=== PATIENT | female | born 1945 | race African-American/Black ===

== ENCOUNTER 2016-06-06 05:12 | Day surgery (SDC) | payer BC ==
[2016-05-29 16:33] VITALS: BMI 22.3
[2016-06-06] MEDS ORDERED: LIDOCAINE HCL 1%, 10 MG/ML (20ML VIAL) ONE (07:12)
[2016-06-06] MEDS ORDERED: HEPARIN NA (PORCINE) 5,000 UNITS/ML 1ML VIAL ONE (07:12)
[2016-06-06] MEDS ORDERED: MIDAZOLAM HCL 2 MG/2 ML SINGLE DOSE VIAL ONE (07:31)
[2016-06-06] MEDS ORDERED: PROPOFOL 20 ML ONE ×3 (07:32)
[2016-06-06] MEDS ORDERED: LIDOCAINE HCL/PF 2% SDV 5ML VIAL ONE (07:37)
[2016-06-06] MEDS ORDERED: LIDOCAINE HCL 1%, 10 MG/ML (50 mL VIAL) IJ ONE ×2 (08:38)
[2016-06-06] MEDS ORDERED: ceFAZolin SODIUM 1 GM VIAL ONE (09:13)
--- NOTE | 2016-06-06 09:29 | OP ---
Operative Note - Note: Operative Date: 06/06/16 Pre-Operative Diagnosis: LLE claudication Operation: Aortogram, LLE angiogram, Popliteal artery, Tibial peroneal trunk DCB angioplasty Findings: popliteal artery occlusion Post-Operative Diagnosis: Same as Pre-op Surgeon: Benjamin Batista Anesthesia: Fractional Estimated Blood Loss (mls): 20 Operative Report Dictated: Yes
[2016-06-06] MEDS ORDERED: ONDANSETRON 4 MG/2 ML VIAL IVPUSH PRN (09:32)
--- NOTE | 2016-06-06 09:32 | HP ---
Admitting History and Physical - Admission Chief Complaint: LLE claudication - Past Medical History Cardiovascular: Yes: Hyperlipdemia, Other (Murmur/irregular rate) Renal/: Yes: Cancer (Bladder) ...: No - Smoking History Smoking history: Former smoker Have you smoked in the past 12 months: No - Alcohol/Substance Use Hx Alcohol Use: No Home Medications - Allergies Allergies/Adverse Reactions: Allergies Allergy/AdvReac Type Severity Reaction Status Date / Time ciprofloxacin [From Cipro] Allergy Verified 06/06/16 07:51 ciprofloxacin HCl Allergy Verified 06/06/16 07:51 [From Cipro] acetaminophen AdvReac Intermediate Itching Verified 06/06/16 07:51 [From Tylenol-Codeine #3] codeine phosphate AdvReac Intermediate Itching Verified 06/06/16 07:51 [From Tylenol-Codeine #3] - Home Medications Home Medications: Ambulatory Orders Ascorbate Calcium [Vitamin C] 500 mg PO DAILY 01/12/15 Calcium 500 mg PO DAILY 01/12/15 Cholecalciferol (Vitamin D3) [Vitamin D3] 2,000 unit PO DAILY 01/12/15 Magnesium 250 mg PO DAILY 01/12/15 Vit B Comp/C/FA/Iron/Vit E [Vitamin B Complex Tablet] 1 cap PO DAILY 01/12/15 Atorvastatin Ca [Lipitor] 10 mg PO HS 05/29/16 Ubidecarenone/Vit E Acetate [Co Q-10 100 mg Softgel] 1 each PO DAILY 05/29/16 Physical Examination Vital Signs: Vital Signs Temperature 98.5 F 06/06/16 07:50 Pulse Rate 82 06/06/16 07:50 Respiratory Rate 20 06/06/16 07:50 Blood Pressure 133/87 06/06/16 07:50 O2 Sat by Pulse Oximetry (%) 99 06/06/16 07:46 Constitutional: Yes: Well Nourished Eyes: Yes: WNL HENT: Yes: WNL Neck: Yes: WNL Cardiovascular: Yes: WNL Respiratory: Yes: WNL Gastrointestinal: Yes: WNL Edema: No Peripheral Pulses WNL: No Assessment/Plan Left lower extremity claudication 1. For angiogram today
[2016-06-06] MEDS ORDERED: CLOPIDOGREL BISULFATE 75 MG TABLET (FP) ONE (09:35)
[2016-06-06] MEDS ORDERED: CLOPIDOGREL BISULFATE 75 MG TABLET (FP) PO ONE (09:39)
[2016-06-06] MEDS ORDERED: LACTATED RINGERS SOLUTION 1,000 ML IV SCH (09:45)
[2016-06-06 10:37] VITALS: TEMP 97.9
--- NOTE | 2016-06-06 12:00 | OP ---
DATE OF OPERATION: 06/06/2016 PREOPERATIVE DIAGNOSIS: Left lower extremity claudication. POSTOPERATIVE DIAGNOSIS: Left lower extremity claudication. PROCEDURE: Aortogram, left lower extremity angiogram, popliteal artery and tibioperoneal trunk drug-coated balloon angioplasty. SURGEON: Benjamin Frost MD ANESTHESIA: Fractional. BLOOD LOSS: 20 mL. INDICATIONS: The patient is a 70-year-old female complaining of one-block claudication. She had a preoperative ultrasound that showed popliteal artery occlusion. She came into the ambulatory surgery. Patient was consented for the procedure understanding all risks, benefits, and alternatives, and then taken to the operating room. PROCEDURE IN DETAIL: Once in the operating suite, she was placed on the operating table in the supine manner, and the area of the left and right groin were prepped and draped in the sterile surgical manner. We then injected 10 mL of 0.5% lidocaine over the right common femoral artery. We then went ahead and used our micropuncture needle to puncture the right common femoral artery. Micropuncture wire was inserted, a micropuncture sheath was inserted, and a traditional 5-Albanian sheath was inserted. A 0.035 floppy guidewire was placed into the aorta followed by a Merit viewing catheter. We then went ahead and shot an aortogram by hand injection showing that the aorta and the iliac arteries were without any disease. We then placed our 0.035 floppy guidewire up and over to the left common femoral artery and the Merit catheter followed. We then shot an angiogram of the left lower extremity showing that the common femoral artery, the profunda, and the proximal SFA were patent. The mid SFA was patent. The distal SFA and Hunters canal were patent, but the above knee popliteal artery down to the TP trunk was completely occluded. Patient had 2-vessel runoff into the foot, but mainly the PT was the main runoff. We then placed a 0.035 stiff guidewire into the SFA. We removed our Merit catheter and placed 6 x 45 crossover sheath, and 5000 units of IV heparin were administered to the patient. We then followed with a Glidecath down to the above-knee popliteal artery. We then selectively crossed the occlusion and placed our wire into the posterior tibial artery. We then went ahead and used a 4 x 10 Ultraverse balloon for angioplasty. We then went ahead and used a 4 x 10 drug-coated balloon, a Lutonix balloon, for angioplasty, as well. Completion angiogram showed that the popliteal artery was now patent. There was good runoff into the foot. There was good brisk flow. At this point, we brought our sheath up and over, StarClose device was successfully deployed in the right common femoral artery. Pressure was held for 5 minutes, and there was no bleeding. The area was wet and dried, and Dermabond was placed. The patient tolerated the procedure with no complications. Patient transferred to PACU in stable condition where Plavix will be given. BENJAMIN FROST DO NP/[id number]
[2016-06-06 12:52] VITALS: BP 128/70; PULSE 78
--- NOTE | 2016-06-07 12:12 | PN ---
Progress Note (short form) - Note Progress Note: Anesthesiology, post op Phone call. Patient called and was concerned about swelling of her lip postop yesterday. pat was reassured yesterday by Dr. Aracelis Bagley, but she called back today and needed to know what caused the swelling. I had an extended conversation with the patient, explained the placement of oral airway and using tongue blade might have caused the swelling during the procedure. During the sedation she was biting hard at one point. Answered all her questions and addressed her concerns. Pat was reassured and satisfied at the end of our phone conversation.
== END 2016-06-06 12:40 | disposition home or self-care (01) ==
LOC: JASU-SURG 05:12
PROVIDERS: ATTEND Surgery Vascular Surgery
PROC: 047U3ZZ Dilation of Left Peroneal Artery, Percutaneous Approach (ICD-10-PCS; principal; 2016-06-06 08:00)
DX: I70.212 Atherosclerosis of native arteries of extremities with intermittent claudication, left leg (principal)
CPT/HCPCS: 37224; 37228; C1725; C2623; 76000-TC; 94760; J1644

== ENCOUNTER 2018-04-06 10:57 | Inpatient (IN) | payer OTHER, BC ==
--- NOTE | 2018-04-06 11:21 | PDOC ---
History of Present Illness - General Chief Complaint: Shortness of Breath Stated Complaint: SHORTNESS OF BREATH Time Seen by Provider: 04/06/18 11:16 - History of Present Illness Initial Comments: 04/06/18 11:40 72 year old woman with a history of COPD (not on home O2) who presents with progressive shortness of breath for 1 month now with 2 days of L leg swelling for which she went to urgent care and as she was getting out of the car began feeling acutely short of breath and was desatting. Urgent care sent to her to the ED. She denies any chest pain, nausea, fever, 04/06/18 13:34 Past History - Past Medical History Allergies/Adverse Reactions: Allergies Allergy/AdvReac Type Severity Reaction Status Date / Time ciprofloxacin [From Cipro] Allergy Verified 04/06/18 11:12 ciprofloxacin HCl Allergy Verified 04/06/18 11:12 [From Cipro] acetaminophen AdvReac Intermediate Itching Verified 04/06/18 11:12 [From Tylenol-Codeine #3] codeine phosphate AdvReac Intermediate Itching Verified 04/06/18 11:12 [From Tylenol-Codeine #3] Home Medications: Ambulatory Orders Ascorbate Calcium [Vitamin C] 500 mg PO DAILY 01/12/15 Cholecalciferol (Vitamin D3) [Vitamin D3] 2,000 unit PO DAILY 01/12/15 Magnesium 250 mg PO DAILY 01/12/15 Vit B Comp/C/Folic/Iron/Vit E [Vitamin B Complex Tablet] 1 cap PO DAILY Ubidecarenone/Vit E Acet [Co Q-10 100 mg Softgel] 1 each PO DAILY 05/29/16 Anemia: No Asthma: No (EMPHYSEMA) Cancer: Yes (bladder ca 11 yrs ago) Cardiac Disorders: No CVA: No COPD: Yes CHF: No Dementia: No Diabetes: No GI Disorders: No Disorders: Yes (CA bladder) HTN: No Hypercholesterolemia: Yes Liver Disease: No Seizures: No Thyroid Disease: No - Surgical History Orthopedic Surgery: Yes (broken bone with pin on right foot) - Suicide/Smoking/Psychosocial Hx Smoking History: Former smoker Have you smoked in the past 12 months: No Information on smoking cessation initiated: No Hx Alcohol Use: No Drug/Substance Use Hx: No Substance Use Type: None Hx Substance Use Treatment: No *Physical Exam - Vital Signs Last Vital Signs Temp Pulse Resp BP Pulse Ox 99 F 102 H 20 170/96 97 04/06/18 11:05 04/06/18 11:05 04/06/18 11:05 04/06/18 11:05 04/06/18 11:05 - Physical Exam Comments: 04/06/18 11:44 harsh systolic murmur 1+ pitting edema on L ankle, calf, thigh Moderate Sedation - Procedure Monitoring Vital Signs: Procedure Monitoring Vital Signs Temperature 99 F 04/06/18 11:05 Pulse Rate 102 H 04/06/18 11:05 Respiratory Rate 20 04/06/18 11:05 Blood Pressure 170/96 04/06/18 11:05 O2 Sat by Pulse Oximetry (%) 97 04/06/18 11:05 ED Treatment Course - LABORATORY CBC & Chemistry Diagram: 04/06/18 13:35 04/06/18 11:39 Medical Decision Making - Medical Decision Making 04/06/18 12:17 72 year old woman with a history of COPD (not on home O2) who presents with progressive shortness of breath for 1 month now with 2 days of L leg swelling for which she went to urgent care and as she was getting out of the car began feeling acutely short of breath and was desatting. Urgent care sent to her to the ED. ED Course: Consider PE, DVT vs CHF vs COPD exacerbation vs pneumonia cbc, cmp, pt/pttinr, ekg, cxr, cta chest, bnp 04/06/18 13:34 *DC/Admit/Observation/Transfer Diagnosis at time of Disposition: DVT (deep venous thrombosis) Qualifiers: DVT location: lower extremity Affected thrombotic vein of extremity: femoral Chronicity: unspecified Laterality: left Qualified Code(s): I82.412 - Acute embolism and thrombosis of left femoral vein Pulmonary embolism Qualifiers: Pulmonary embolism type: unspecified Chronicity: unspecified Acute cor pulmonale presence: without acute cor pulmonale Qualified Code(s): I26.99 - Other pulmonary embolism without acute cor pulmonale - Discharge Dispostion Condition at time of disposition: Fair Decision to Admit order: Yes - Referrals Referrals: Inna Christine MD [Primary Care Provider] - - Patient Instructions - Post Discharge Activity
--- NOTE | 2018-04-06 11:46 | PDOC ---
Attending Attestation - HPI HPI: 04/06/18 13:15 The patient is a 72 year old female with a PMH of COPD (not on home O2) who presents to the ER with a 1 month history of shortness of breath and right leg swelling for the past 2 days. Patient was seen at an urgent care and was told to come to the ER for further evaluation. The patient denies cp, fever, chills, N/V/D/C, diaphoresis, or urinary symptoms. Allergies: cipro, acetaminophen. codeine phosphate Social Hx: No reported alcohol, drug or cigarette use. Surgeries: broken bone with pin on right foot PCP: Dr. Christine <Taylor Brar - Last Filed: 04/06/18 13:16> - Resident Resident Name: Ana Maria Anglin - ED Attending Attestation I have performed the following: I have examined & evaluated the patient, The case was reviewed & discussed with the resident, I agree w/resident's findings & plan, Exceptions are as noted - Physicial Exam PE: GENERAL: Awake, alert, and fully oriented, in no acute distress HEAD: No signs of trauma EYES: PERRLA, EOMI, sclera anicteric, conjunctiva clear ENT: Auricles normal inspection, hearing grossly normal, nares patent, oropharynx clear without exudates. Moist mucosa NECK: Normal ROM, supple, no lymphadenopathy, JVD, or masses LUNGS: Breath sounds equal, clear to auscultation bilaterally. No wheezes, and no crackles HEART: Regular rate and rhythm, normal S1 and S2, no murmurs, rubs or gallops ABDOMEN: Soft, nontender, normoactive bowel sounds. No guarding, no rebound. No masses EXTREMITIES: Normal range of motion, 1+ edema to the LLE- thigh and knee. No clubbing or cyanosis. No cords, erythema, or tenderness NEUROLOGICAL: Cranial nerves II through XII grossly intact. Normal speech, normal gait. Motor and sensation intact SKIN: Warm, Dry, normal turgor, no rashes or lesions noted. - Medical Decision Making Pt tachycardic, c/o SOB with unilateral lower extremity swelling. Will work up for DVT/PE vs CHF. <Brittney Morrell - Last Filed: 04/06/18 13:33>
[2018-04-06 13:51] LABS: BASO % 0.4 % (0-2.0); EOS % 0.7 % (0-4.5); HEMATOCRIT 41.7 % (32.4-45.2); HEMOGLOBIN 13.5 GM/dL (10.7-15.3); LYMPH % 6.7 % (8-40); MCH 26.9 pg (25.7-33.7); MCHC 32.3 g/dl (32.0-36.0); MEAN CELL VOLUME 83.2 fl (80-96); MEAN PLT VOLUME 7.5 fl (7.5-11.1); MONO % 4.4 % (3.8-10.2); NEUT % 87.8 % (42.8-82.8); PLATELET COUNT 383 K/MM3 (134-434); RBC 5.01 M/mm3 (3.60-5.2); RDW 15.2 % (11.6-15.6); WHITE BLOOD COUNT 14.1 K/mm3 (4.0-10.0)
[2018-04-06 13:58] LABS: INR 1.16 (0.83-1.09); PROTHROMBIN TIME (PATIENT) 13.7 SEC (9.7-13.0)
[2018-04-06 14:00] LABS: ACTIVATED PTT 23.4 SECONDS (25.2-36.5)
[2018-04-06 14:09] LABS: ALBUMIN 3.9 g/dl (3.4-5.0); ALK PHOS 59 U/L (45-117); ANION GAP 8 MMOL/L (8-16); BILIRUBIN,TOTAL 0.7 mg/dL (0.2-1); BLOOD UREA NITROGEN 12 mg/dL (7-18); CALCIUM 9.1 mg/dL (8.5-10.1); CHLORIDE 105 mmol/L (98-107); CO2 25 mmol/L (21-32); CREATININE 0.8 mg/dL (0.55-1.3); GLUCOSE,RANDOM 87 mg/dL (74-106); N-TERMINAL BNP 767.4 pg/ml (5-125); POTASSIUM 4.4 mmol/L (3.5-5.1); SGOT/AST 19 U/L (15-37); SGPT/ALT 24 U/L (13-61); SODIUM 138 mmol/L (136-145); TOT PROT 8.5 g/dl (6.4-8.2)
--- NOTE | 2018-04-06 14:39 | EKG ---
Test Reason : Blood Pressure : / mmHG Vent. Rate : 102 BPM Atrial Rate : 102 BPM P-R Int : 138 ms QRS Dur : 072 ms QT Int : 336 ms P-R-T Axes : 078 015 018 degrees QTc Int : 437 ms SINUS TACHYCARDIA POSSIBLE LEFT ATRIAL ENLARGEMENT BORDERLINE ECG WHEN COMPARED WITH ECG OF 07-OCT-2014 07:43, VENT. RATE HAS INCREASED BY 40 BPM Confirmed by Aditya Erwin MD ([id number]) on 04/06/2018 2:39:10 PM Referred By: Confirmed By:Aditya Erwin MD
[2018-04-06] MEDS ORDERED: ENOXAPARIN NA (PORCINE) 60 MG/0.6 ML DISP.SYRIN SQ SCH (14:45)
[2018-04-06] MEDS ORDERED: CLINDAMYCIN 600MG PREMIX IVPB 600 MG/50 ML BAG IVPB ONE (15:12)
[2018-04-06] MEDS ORDERED: ENOXAPARIN NA (PORCINE) 60 MG/0.6 ML DISP.SYRIN SQ ONE (15:13)
[2018-04-06] MEDS: ENOXAPARIN NA (PORCINE) 60 MG/0.6 ML DISP.SYRIN SQ SCH (23:38)
[2018-04-07 07:33] LABS: BASO % 0.9 % (0-2.0); EOS % 2.3 % (0-4.5); HEMATOCRIT 36.6 % (32.4-45.2); HEMOGLOBIN 12.2 GM/dL (10.7-15.3); LYMPH % 13.1 % (8-40); MCH 27.4 pg (25.7-33.7); MCHC 33.2 g/dl (32.0-36.0); MEAN CELL VOLUME 82.6 fl (80-96); MEAN PLT VOLUME 7.8 fl (7.5-11.1); MONO % 6.7 % (3.8-10.2); PLATELET COUNT 337 K/MM3 (134-434); RBC 4.43 M/mm3 (3.60-5.2); WHITE BLOOD COUNT 9.9 K/mm3 (4.0-10.0)
[2018-04-07 08:04] LABS: ALBUMIN 3.2 g/dl (3.4-5.0); ALK PHOS 50 U/L (45-117); ANION GAP 9 MMOL/L (8-16); BILIRUBIN,TOTAL 0.6 mg/dL (0.2-1); BLOOD UREA NITROGEN 13 mg/dL (7-18); CALCIUM 8.4 mg/dL (8.5-10.1); CHLORIDE 106 mmol/L (98-107); CO2 24 mmol/L (21-32); CREATININE 0.8 mg/dL (0.55-1.3); GLUCOSE,RANDOM 76 mg/dL (74-106); N-TERMINAL BNP 741.5 pg/ml (5-125); POTASSIUM 4.1 mmol/L (3.5-5.1); SGOT/AST 16 U/L (15-37); SGPT/ALT 19 U/L (13-61); SODIUM 139 mmol/L (136-145); TOT PROT 7.2 g/dl (6.4-8.2)
--- NOTE | 2018-04-07 09:27 | EKG ---
Test Reason : Blood Pressure : / mmHG Vent. Rate : 114 BPM Atrial Rate : 114 BPM P-R Int : 136 ms QRS Dur : 066 ms QT Int : 310 ms P-R-T Axes : -18 043 034 degrees QTc Int : 427 ms SINUS TACHYCARDIA WITH PREMATURE SUPRAVENTRICULAR COMPLEXES T WAVE ABNORMALITY, CONSIDER ANTERIOR ISCHEMIA ABNORMAL ECG Confirmed by Aditya Erwin MD ([id number]) on 04/07/2018 9:27:27 AM Referred By: Confirmed By:Aditya Erwin MD
--- NOTE | 2018-04-07 10:32 | HP ---
Admitting History and Physical - Admission History of Present Illness: 72 year old female with a PMH of COPD (not on home O2) who presents to the ER with a 1 month history of shortness of breath and right leg swelling for the past 2 days. Patient travelled to [place] by car on month ago-- - Past Medical History Cardiovascular: Yes: Hyperlipdemia, Other (Murmur/irregular rate) Renal/: Yes: Cancer (Bladder) - Smoking History Smoking history: Former smoker Have you smoked in the past 12 months: No If you are a former smoker, when did you quit?: 20 years ago - Alcohol/Substance Use Hx Alcohol Use: No Home Medications - Allergies Allergies/Adverse Reactions: Allergies Allergy/AdvReac Type Severity Reaction Status Date / Time ciprofloxacin [From Cipro] Allergy Verified 04/06/18 11:12 ciprofloxacin HCl Allergy Verified 04/06/18 11:12 [From Cipro] acetaminophen AdvReac Intermediate Itching Verified 04/06/18 11:12 [From Tylenol-Codeine #3] codeine phosphate AdvReac Intermediate Itching Verified 04/06/18 11:12 [From Tylenol-Codeine #3] - Home Medications Home Medications: Ambulatory Orders Ascorbate Calcium [Vitamin C] 500 mg PO DAILY 01/12/15 Cholecalciferol (Vitamin D3) [Vitamin D3] 2,000 unit PO DAILY 01/12/15 Magnesium 250 mg PO DAILY 01/12/15 Vit B Comp/C/Folic/Iron/Vit E [Vitamin B Complex Tablet] 1 cap PO DAILY Ubidecarenone/Vit E Acet [Co Q-10 100 mg Softgel] 1 each PO DAILY 05/29/16 Review of Systems - Review of Systems Cardiovascular: denies: Chest Pain Respiratory: reports: SOB, SOB on Exertion Gastrointestinal: denies: Abdominal Pain Genitourinary: reports: No Symptoms Musculoskeletal: reports: Other (swelling) Neurological: reports: No Symptoms Physical Examination Vital Signs: Vital Signs Temperature 98.9 F 04/07/18 05:00 Pulse Rate 99 H 04/07/18 05:00 Respiratory Rate 18 04/07/18 05:00 Blood Pressure 124/83 04/07/18 05:00 O2 Sat by Pulse Oximetry (%) 93 L 04/06/18 21:47 Neck: Yes: Supple Cardiovascular: Yes: Regular Rate and Rhythm Respiratory: Yes: Regular, CTA Bilaterally Gastrointestinal: Yes: Normal Bowel Sounds, Soft Edema: Yes Labs: CBC, BMP 04/07/18 06:00 04/07/18 06:00 Imaging - Results Ultrasound: Report Reviewed (dvt) Problem List - Problems (1) DVT (deep venous thrombosis) Assessment/Plan: -LOVENOX HEM CONSULT FOR HYPERCOAG W/U Code(s): I82.409 - ACUTE EMBOLISM AND THOMBOS UNSP DEEP VN UNSP LOWER EXTREMITY Qualifiers: DVT location: lower extremity Affected thrombotic vein of extremity: femoral Chronicity: unspecified Laterality: left Qualified Code(s): I82.412 - Acute embolism and thrombosis of left femoral vein (2) Pulmonary embolism Assessment/Plan: -C/W SYMPTOMS CTA LOVENOX Code(s): I26.99 - OTHER PULMONARY EMBOLISM WITHOUT ACUTE COR PULMONALE Qualifiers: Pulmonary embolism type: unspecified Chronicity: unspecified Acute cor pulmonale presence: without acute cor pulmonale Qualified Code(s): I26.99 - Other pulmonary embolism without acute cor pulmonale (3) COPD (chronic obstructive pulmonary disease) Assessment/Plan: PULM ON CASE Code(s): J44.9 - CHRONIC OBSTRUCTIVE PULMONARY DISEASE, UNSPECIFIED (4) SOB (shortness of breath) on exertion Assessment/Plan: MAYBE DUE TO ABOVE ECHO CARDIO Code(s): R06.02 - SHORTNESS OF BREATH
--- NOTE | 2018-04-07 11:13 | PN ---
Progress Note (short form) - Note Progress Note: PULMONARY CONSULTATION DICTATED 04/07/18 IMP DYSPNEA/HYPOXEMIA LIKELY SECONDARY TO ACUTE PULMONARY EMBOLISM LLE DVT LIKELY PROVOKED COPD CHELSIE NODULE H/O BLADDER CA + TROPONIN PLAN LOVENOX O2 INHALED BRONCHODILATORS CHEST CTA ECHO W/U FOR HYPERCOAGULABLE STATE OUTPATIENT TREND TROPONINS DR NEFF Problem List - Problems (1) COPD (chronic obstructive pulmonary disease) Code(s): J44.9 - CHRONIC OBSTRUCTIVE PULMONARY DISEASE, UNSPECIFIED (2) DVT (deep venous thrombosis) Code(s): I82.409 - ACUTE EMBOLISM AND THOMBOS UNSP DEEP VN UNSP LOWER EXTREMITY Qualifiers: DVT location: lower extremity Affected thrombotic vein of extremity: femoral Chronicity: unspecified Laterality: left Qualified Code(s): I82.412 - Acute embolism and thrombosis of left femoral vein (3) Pulmonary embolism Code(s): I26.99 - OTHER PULMONARY EMBOLISM WITHOUT ACUTE COR PULMONALE Qualifiers: Pulmonary embolism type: unspecified Chronicity: unspecified Acute cor pulmonale presence: without acute cor pulmonale Qualified Code(s): I26.99 - Other pulmonary embolism without acute cor pulmonale (4) Hypoxemia Code(s): R09.02 - HYPOXEMIA (5) SOB (shortness of breath) on exertion Code(s): R06.02 - SHORTNESS OF BREATH
[2018-04-07] MEDS: ENOXAPARIN NA (PORCINE) 60 MG/0.6 ML DISP.SYRIN SQ SCH ×2 (12:31→21:13)
--- NOTE | 2018-04-07 12:46 | CON.CARD ---
Consult Consult Specialty:: Cardiology Referred by:: Abran Reason for Consultation:: sob - History of Present Illness Chief Complaint: sob, edema History of Present Illness: 72 year old female with a PMH of COPD admitted 04/06/18 complaining of a 1 month history of shortness of breath and right leg swelling for 2 days. She was found with an extensive left leg DVT on sonogram. Started on Lovenox. No chest pain, orthopnea, pnd. No palpitations, dizziness or syncope. - History Source History Provided By: Patient, Medical Record - Past Medical History Cardio/Vascular: Yes: Hyperlipdemia, Other (Murmur/irregular rate) Renal/: Yes: Cancer (Bladder) - Alcohol/Substance Use Hx Alcohol Use: No - Smoking History Smoking history: Former smoker Have you smoked in the past 12 months: No If you are a former smoker, when did you quit?: 20 years ago Home Medications - Allergies Allergies/Adverse Reactions: Allergies Allergy/AdvReac Type Severity Reaction Status Date / Time ciprofloxacin [From Cipro] Allergy Verified 04/06/18 11:12 ciprofloxacin HCl Allergy Verified 04/06/18 11:12 [From Cipro] acetaminophen AdvReac Intermediate Itching Verified 04/06/18 11:12 [From Tylenol-Codeine #3] codeine phosphate AdvReac Intermediate Itching Verified 04/06/18 11:12 [From Tylenol-Codeine #3] - Home Medications Home Medications: Ambulatory Orders Ascorbate Calcium [Vitamin C] 500 mg PO DAILY 01/12/15 Cholecalciferol (Vitamin D3) [Vitamin D3] 2,000 unit PO DAILY 01/12/15 Magnesium 250 mg PO DAILY 01/12/15 Vit B Comp/C/Folic/Iron/Vit E [Vitamin B Complex Tablet] 1 cap PO DAILY Ubidecarenone/Vit E Acet [Co Q-10 100 mg Softgel] 1 each PO DAILY 05/29/16 Vital Signs: Vital Signs Temperature 98.9 F 04/07/18 05:00 Pulse Rate 98 H 04/07/18 09:00 Respiratory Rate 18 04/07/18 09:00 Blood Pressure 100/74 04/07/18 09:00 O2 Sat by Pulse Oximetry (%) 95 04/07/18 09:00 Constitutional: Yes: Well Nourished, No Distress, Calm Eyes: Yes: Conjunctiva Clear, EOM Intact HENT: Yes: Atraumatic, Normocephalic Neck: Yes: Supple, Trachea Midline Respiratory: Yes: Regular, CTA Bilaterally Gastrointestinal: Yes: Normal Bowel Sounds, Soft Cardiovascular: Yes: Regular Rate and Rhythm JVD: No Carotid Bruit: No PMI: Non-Displaced Heart Sounds: Yes: S1, S2 Musculoskeletal: Yes: WNL Extremities: Yes: WNL Edema: Yes Edema: LLE: 2+ Peripheral Pulses WNL: Yes - Other Data Labs, Other Data: CBC, BMP 04/07/18 06:00 04/07/18 06:00 INR, PTT INR 1.16 (0.83-1.09) H 04/06/18 11:39 Troponin, BNP 04/06/18 04/06/18 04/06/18 11:39 13:35 19:41 Troponin I 0.06 H 0.05 B-Natriuretic Peptide 767.4 H Cancelled 04/07/18 06:00 Troponin I 0.05 B-Natriuretic Peptide 741.5 H Troponin, BNP 04/06/18 04/06/18 04/06/18 11:39 13:35 19:41 Troponin I 0.06 H 0.05 B-Natriuretic Peptide 767.4 H Cancelled 04/07/18 06:00 Troponin I 0.05 B-Natriuretic Peptide 741.5 H Imaging - Results Chest X-ray: Report Reviewed EKG: Report Reviewed Other: Report Reviewed (duplex left DVT) Assessment/Plan 72 year old female with a PMH of COPD admitted 04/06/18 complaining of a 1 month history of shortness of breath and right leg swelling for 2 days. She was found with an extensive left leg DVT on sonogram. Started on Lovenox. DVT-- This is the likely cause of her issues. -echo -CTA to evaluate for PE -would consider change from Lovenox to Xarelto or Eliquis. -No need for ischemia workup at this point.
--- NOTE | 2018-04-07 13:00 | EKG ---
Test Reason : Blood Pressure : / mmHG Vent. Rate : 103 BPM Atrial Rate : 103 BPM P-R Int : 134 ms QRS Dur : 068 ms QT Int : 342 ms P-R-T Axes : 074 042 031 degrees QTc Int : 448 ms SINUS TACHYCARDIA WITH PREMATURE ATRIAL COMPLEXES OTHERWISE NORMAL ECG WHEN COMPARED WITH ECG OF 06-APR-2018 19:32, NO SIGNIFICANT CHANGE WAS FOUND Confirmed by Aditya Erwin MD ([id number]) on 04/07/2018 12:59:34 PM Referred By: Varghese MOSS Confirmed By:Aditya Erwin MD
--- NOTE | 2018-04-07 14:24 | CONS ---
PULMONARY CONSULTATION DATE OF CONSULTATION: 04/07/2018 REFERRING PHYSICIAN: Rhonda Osullivan MD The patient is a 72-year-old black female with past medical history of COPD maintained on albuterol inhaler,Bladder Ca ,who is a nonsmoker, admitted to [facility] with complaint of shortness of breath and left lower extremity swelling. Patient states that she went for a long car ride in January to [place] and back. About a week or so after the trip, she started developing progressive shortness of breath and dyspnea with minimal exertion. She denied any compliant of chest pain, nausea, vomiting, or diaphoresis at that time. Symptoms continued to worsen, and on 2 days prior to this admission, started noticing left lower extremity swelling. She went to an urgicenter. At the time, was advised to go to the emergency room. She was also noted to be hypoxic with O2 saturations in the 80s. Duplex of the lower extremity which revealed a deep vein thrombosis in the left common femoral, greater saphenous, and likely the junction/origin of the deep femoral vein. She was transferred to the telemetry unit, started on Lovenox. Patient underwent a CTA which was non-diagnostic secondary to apparently there was an issue with the contrast material. Patient has a history of smoking, quit 20 years ago. She denies any history of occupational exposure to chemicals or fumes. There is no history of DVT or PE in the past. There is no history of respiratory failure in the past requiring ventilatory support. PAST MEDICAL HISTORY: Again includes COPD. REVIEW OF SYSTEMS: Positive dyspnea. Positive chest tightness. No chest pain. No nausea. No vomiting. No diaphoresis. No fevers, chills, weight loss, or night sweats. CURRENT MEDICATIONS: Include Lovenox. PHYSICAL EXAMINATION: General: The patient is a well-developed, well-nourished female, awake, alert, in no acute distress. Vital Signs: She is afebrile. Blood pressure is 100/74. Respiratory rate is 18. O2 saturation is 95% on room air. HEENT: Normocephalic, atraumatic. Neck: Supple. Heart: Regular. S1, S2. Chest: Clear. Abdomen: Soft. Bowel sounds positive. Extremities: There is swelling and tenderness, left lower extremity. REPORTS: Chest CT not interpreted apparently. Chest x-ray: No infiltrates. No effusions. Duplex: Left lower extremity DVT. Also, of note is patient had a chest CT performed in November 2017, which revealed a left upper lobe nodule which has been relatively stable over 2 years' duration, currently being followed by Dr. Sinha. IMPRESSION: 1. Dyspnea, most likely secondary to acute pulmonary embolism, likely provoked. 2. Left lower extremity deep vein thrombosis, again likely provoked secondary to recent travel. 3. Chronic obstructive pulmonary disease. 4. H/O Bladder ca PLAN: Continue Lovenox, supplemental O2 as needed, inhaled bronchodilators. Also, repeat CTA of the chest. Obtain echocardiogram. Also, workup for hypercoagulable state as an outpatient. JOSE D NEFF M.D. [id number] MTDD
--- NOTE | 2018-04-07 19:18 | CONSULT ---
Consult Consult Specialty:: Hematology Referred by:: Reason for Consultation:: DVT - History of Present Illness Chief Complaint: Leg swelling and SOB History of Present Illness: 72F with COPD admitted yesterday with LLE swelling and pain x 2 days. Found to have DVT in left common femoral, greater saphenous and likely involving the junction/origin of deep femoral vein. Started on Lovenox. Endorses 2 months of exertional SOB, without chest pain as well (not typical of her COPD). Reports car roundtrip to [place] (under 4 hours) prior to onset of SOB. No other travel , surgeries, hospitalizations, or injuries. No prior hx of thrombosis. Pt's mother had a blood clot at an older age. Also, sister with DVT before age 50. Reports normal mammo and colonoscopy about 1 year ago. Denies melena, hematochezia, vaginal bleeding, fevers, weight loss. Not on any hormonal treatments or supplements. - Past Medical History Cardio/Vascular: Yes: Hyperlipdemia, Other (Murmur/irregular rate) Renal/: Yes: Cancer (Bladder) - Alcohol/Substance Use Hx Alcohol Use: No - Smoking History Smoking history: Former smoker Have you smoked in the past 12 months: No If you are a former smoker, when did you quit?: 20 years ago Home Medications - Allergies Allergies/Adverse Reactions: Allergies Allergy/AdvReac Type Severity Reaction Status Date / Time ciprofloxacin [From Cipro] Allergy Verified 04/06/18 11:12 ciprofloxacin HCl Allergy Verified 04/06/18 11:12 [From Cipro] acetaminophen AdvReac Intermediate Itching Verified 04/06/18 11:12 [From Tylenol-Codeine #3] codeine phosphate AdvReac Intermediate Itching Verified 04/06/18 11:12 [From Tylenol-Codeine #3] - Home Medications Home Medications: Ambulatory Orders Ascorbate Calcium [Vitamin C] 500 mg PO DAILY 01/12/15 Cholecalciferol (Vitamin D3) [Vitamin D3] 2,000 unit PO DAILY 01/12/15 Magnesium 250 mg PO DAILY 01/12/15 Vit B Comp/C/Folic/Iron/Vit E [Vitamin B Complex Tablet] 1 cap PO DAILY Ubidecarenone/Vit E Acet [Co Q-10 100 mg Softgel] 1 each PO DAILY 05/29/16 Review of Systems - Review of Systems Constitutional: reports: No Symptoms Cardiovascular: reports: Shortness of Breath Respiratory: reports: SOB, SOB on Exertion Gastrointestinal: reports: No Symptoms Genitourinary: reports: No Symptoms Endocrine: reports: No Symptoms Hematology/Lymphatic: reports: No Symptoms Physical Exam Vital Signs: Vital Signs Temperature 98.6 F 04/07/18 13:00 Pulse Rate 107 H 04/07/18 13:00 Respiratory Rate 18 04/07/18 13:00 Blood Pressure 94/50 L 04/07/18 13:00 O2 Sat by Pulse Oximetry (%) 95 04/07/18 09:00 Constitutional: Yes: Well Nourished, Calm Eyes: Yes: Conjunctiva Clear Cardiovascular: Yes: Regular Rate and Rhythm Respiratory: Yes: Regular, CTA Bilaterally Gastrointestinal: Yes: Soft Edema: Yes Edema: LLE: 2+ (well perfused, no skin changes) Labs: CBC, BMP 04/07/18 06:00 04/07/18 06:00 Imaging - Results Ultrasound: Report Reviewed Assessment/Plan 72F with COPD admitted with first extensive LLE. No clear provoking factor. It' s possible that it developed after January car trip (prior to onset of SOB) though it wasn't very long. Ordered for CTA. Can switch to PO anticoagulation. Would favor Eliquis -- 10 mg BID x 7 days, followed by 5 mg BID. She should f/u in hematology clinic in 3 months to determine duration. Given extent of thrombosis, questionable provoking factor, and family history, will likely need senior living AC.
--- NOTE | 2018-04-08 02:06 | PN ---
Progress Note (short form) - Note Progress Note: 72 yr old woman with HLD, hx of bladder Ca, presented to the ED with left leg swelling with tightness for 2 days a/w shortness of breath and fatigue for past 1 month since returning from a car trip to [place] 2 days prior to [place]. Since her car ride she notes increased sob on exertion especially when going up stairs. was on 5-day course of NSAIDs and antibiotics for URI symptoms earlier this month that led to loose BM's. denies chest pain, leg pain, fever, dysuria, cough, headache, dizziness, syncope , weightloss, night sweats. Pmhx - diagnosed with bladder ca in 2001 at [facility], received 3 injections("was told it was a derivative of TB virus") directly in her bladder for tx't(denied radiotherapy) and was followed by for 3mo, 6mo and then yearly f/u with no return of bladder cancer masses. stopped going to f/u in 2012 - had colonoscopy q5yrs since age 49, last colonoscopy in jan 2017, she normally has polyps removed with every colonoscopy, in 2017 she was told to return in 3 yrs for f/u due to a large polyp, recalls they were always benign. did not get a colonoscopy in 2018. GI dr: Dr. Ugalde - gets mammograms every year(but missed 2018) without any pathology - was found to have a lung nodule in 2016, follows with Dr. Sinha and Dr. Singleton, has been stable. - underwent angioplasty in 06/06/[address] Batista that found popliteal artery occlusion, she followed up 3 months later with u/s that showed good perfusion Soc hx:Former smoker, started around her 20's with 1-2cigs occasionally with gradual incr to 1pk/day in her 50's before being tapered down to quitting, has abstained since her mid-50's. drinks 1 glass of wine 1-2x mo with dinner, smoker marijuana occasionally in her 20's(denies recent use) fmhx: Sister with hx of DVT, dx'd at age 20's(pt does not recall if there was any cause identified for her sister's DVT or the circumstances under which it occurred) Mother with Breast Ca, dx'd age 80's Brother with prostate Ca, dx'd age 60-70's 2 adult children(1 son in the [place], 1 daughter in [place]) and 1 granddaughter all healthy PE: NAD, calm CV: systolic murmur, s1, s2, no RG Lungs: no wheezes/crackles/rhonchi/rales, CTAB, quiet at bases Chest: nontender ABd: soft, nontender, nondistended EXT: nontender calves, no pitting edema, Lthigh mildly larger than right, no LE erythema, no rashes, 2+DP and popliteal pulses b/l, warm Neuro: facial symmetry, CN2-12 intact, alert and oriented x3, 5/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 72 yr old woman with HLD, LLE claudication, with hx of bladder ca and pulm nodule presented to ED with left leg swelling caused by VTE and was found to have extensive PE now being monitored in the ICU pending further evaluation. Heme - on Lovenox 60mg BID for VTEs will need further evaluation with echo to test for right heart strain IR evaluation for thrombectomy heme consult for coagulopathy work-up pt has concerns about being placed on AC due to GI bleed risk CV ICU monitoring for hemodynamic stability Pulm - outpt f/u of nodule
--- NOTE | 2018-04-08 09:12 | PN ---
Progress Note, Physician Chief Complaint: AWAKE ALERT EVENTS AND NOTES REVIEWED COMFORTABLE ON 2L NC - Current Medication List Current Medications: Active Medications Enoxaparin Sodium (Lovenox -) 60 mg SQ BID PAPA Last Admin: 04/07/18 21:13 Dose: 60 mg - Objective Vital Signs: Vital Signs Temperature 98.2 F 04/08/18 06:00 Pulse Rate 92 H 04/08/18 06:00 Respiratory Rate 18 04/08/18 06:00 Blood Pressure 129/87 04/08/18 06:00 O2 Sat by Pulse Oximetry (%) 93 L 04/07/18 22:00 Constitutional: Yes: No Distress Eyes: Yes: WNL HENT: Yes: WNL Neck: Yes: WNL Cardiovascular: Yes: Tachycardia Respiratory: Yes: Diminished Gastrointestinal: Yes: Soft Genitourinary: Yes: WNL Musculoskeletal: Yes: WNL Extremities: Yes: WNL Edema: No Peripheral Pulses WNL: Yes Integumentary: Yes: WNL Wound/Incision: Yes: Clean/Dry Neurological: Yes: WNL ...Motor Strength: WNL Psychiatric: Yes: WNL Labs: CBC, BMP 04/07/18 06:00 04/07/18 06:00 INR, PTT INR 1.16 (0.83-1.09) H 04/06/18 11:39 Problem List - Problems (1) COPD (chronic obstructive pulmonary disease) Code(s): J44.9 - CHRONIC OBSTRUCTIVE PULMONARY DISEASE, UNSPECIFIED (2) DVT (deep venous thrombosis) Code(s): I82.409 - ACUTE EMBOLISM AND THOMBOS UNSP DEEP VN UNSP LOWER EXTREMITY Qualifiers: DVT location: lower extremity Affected thrombotic vein of extremity: femoral Chronicity: unspecified Laterality: left Qualified Code(s): I82.412 - Acute embolism and thrombosis of left femoral vein (3) Hypoxemia Code(s): R09.02 - HYPOXEMIA (4) Pulmonary embolism Code(s): I26.99 - OTHER PULMONARY EMBOLISM WITHOUT ACUTE COR PULMONALE Qualifiers: Pulmonary embolism type: unspecified Chronicity: unspecified Acute cor pulmonale presence: without acute cor pulmonale Qualified Code(s): I26.99 - Other pulmonary embolism without acute cor pulmonale Assessment/Plan LOVENOX SQ TRANSITION TO [facility] FOR 6 MONTHS HEME/PULM EVAL 02 SUPPORT NEBS OOB TO CHAIR
[2018-04-08] MEDS: ENOXAPARIN NA (PORCINE) 60 MG/0.6 ML DISP.SYRIN SQ SCH ×2 (10:02→21:47)
--- NOTE | 2018-04-08 11:23 | PN ---
Teaching Attending Note Name of Resident: Nile Harris ATTENDING PHYSICIAN STATEMENT I saw and evaluated the patient. I reviewed the resident's note and discussed the case with the resident. I agree with the resident's findings and plan as documented. SUBJECTIVE: Patient seen and examined in the ICU. Awake and alert. No CP or SOB. No dizziness. ECHO was just completed and the results are pending. Intake & Output 04/05/18 04/06/18 04/07/18 04/08/18 23:59 23:59 23:59 23:59 Intake Total 10 350 150 Balance 10 350 150 Weight 121 lb 9.6 oz 121 lb 9.6 oz 120 lb 4 oz Last Vital Signs Temp Pulse Resp BP Pulse Ox 98.1 F 88 24 H 121/74 93 L 04/08/18 10:00 04/08/18 10:00 04/08/18 10:00 04/08/18 10:00 04/07/18 22:00 Active Medications Enoxaparin Sodium (Lovenox -) 60 mg SQ BID PAPA Last Admin: 04/08/18 10:02 Dose: 60 mg Constitutional: Yes: Awake and alert Eyes: Yes: Conjunctiva Clear Cardiovascular: Yes: Regular Rate and Rhythm Respiratory: Yes: CTA Bilaterally Gastrointestinal: Yes: Soft Edema: Yes Edema: LLE: 2+ Labs: Assessment/Plan Acute LLE DVT with bilateral PE (does report extended car travel in January) COPD History of bladder CA Lovenox BID Heme evaluation O2 as needed Check ECHO report OOB to chair Cardiac Telemetry monitoring Dr Rocha
[2018-04-08 12:18] VITALS: BMI 21.2
--- NOTE | 2018-04-08 12:22 | ECHO ---
Name: AVINASH CARRINGTON Exam:Adult Echocardiogram Study Date: 04/08/2018 10:10 AM Age: 72 yrs Reason For Study: SOB Height: 63 in Weight: 121 lb BSA: 1.6 m2 MMode/2D Measurements & Calculations IVSd: 1.1 cm Ao root diam: 2.7 cm LVIDd: 3.2 cm LA dimension: 1.6 cm LVIDs: 2.0 cm LVPWd: 0.91 cm EDV(Teich): 40.9 ml ESV(Teich): 12.0 ml Doppler Measurements & Calculations MV E max ugo: 74.2 cm/sec MV A max ugo: 122.2 cm/sec MV dec slope: 1117 cm/sec2 MV E/A: 0.61 TR max ugo: 436.4 cm/sec Med Peak E' Ugo: 8.7 cm/sec TR max P.3 mmHg Med E/e': 8.5 Lat Peak E' Ugo: 11.4 cm/sec Lat E/e': 6.5 Procedure A complete two-dimensional transthoracic echocardiogram was performed (2D, M-mode, Doppler and color flow Doppler). Left Ventricle The left ventricle is normal in size. Left ventricular systolic function is normal. Ejection Fraction = 65- 70%. Grade I diastolic dysfunction, (abnormal relaxation pattern). Ratio E/E'= 9. No regional wall mo tion abnormalities noted. Right Ventricle The right ventricle is normal size. The right ventricular systolic function is grossly normal. Atria The left atrial size is normal. The right atrium is mildly dilated. Mitral Valve The mitral valve is normal in structure and function. There is mild mitral regurgitation. Tricuspid Valve The tricuspid valve is normal in structure and function. There is moderate tricuspid regurgitation. P ulmonary artery systolic pressure is at least 85 mmHg assuming RA pressure of 3 mmHg. Aortic Valve There is mild aortic sclerosis.;. No aortic regurgitation is present. Pulmonic Valve The pulmonic valve is not well visualized. Great Vessels The aortic root is normal size. Pericardium/Pleura There is no pericardial effusion. Interpretation Summary The left ventricle is normal in size. Left ventricular systolic function is normal. No regional wall motion abnormalities noted. Ejection Fraction = 65-70%. Grade I diastolic dysfunction, (abnormal relaxation pattern). Ratio E/E'= 9 The right ventricular systolic function is grossly normal. The left atrial size is normal. The right atrium is mildly dilated. There is mild mitral regurgitation. There is moderate tricuspid regurgitation. Pulmonary artery systolic pressure is at least 85 mmHg assuming RA pressure of 3 mmHg c/w severe pulm onary hypertension There is mild aortic sclerosis. No aortic regurgitation is present. There is no pericardial effusion. Previous study is not available for comparison Barry Garcia MD 04/08/2018 12:21 PM
--- NOTE | 2018-04-08 13:45 | PN ---
Physical Exam: SUBJECTIVE: Patient seen and examined at bedside this morning. Patient saturating well on room air without shortness of breath, cough, chest pain, palpitations. Tolerating regular diet without abdominal pain, nausea vomiting. Denies any bleeding, melena, hematochezia, hemoptysis, hematuria. OBJECTIVE: Vital Signs Period Temp Pulse Resp BP Sys/Lozano Pulse Ox Last 24 Hr 98.1 F-99.6 F 85-112 16-25 101-147/73-101 93-96 GENERAL: The patient is awake, alert, and fully oriented, in no acute distress. HEAD: Normocephalic, atraumatic EYES: PERRL, extraocular movements intact, sclera anicteric, conjunctiva clear. ENT: Oropharynx clear without exudates, moist mucous membranes. NECK: Trachea midline, supple without lymphadenopathy. LUNGS: Breath sounds equal, clear to auscultation bilaterally. No wheezes, no crackles. No accessory muscle use. HEART: Regular rate and rhythm, S1, S2 without murmur, rub or gallop. ABDOMEN: Soft, nontender, nondistended. Normoactive bowel sounds X4 quadrants. No guarding, no rebound tenderness. EXTREMITIES: 2+ radial, dorsalis pedis pulses bilaterally, warm, well-perfused. No edema bilateral lower extremities. NEUROLOGICAL: Cranial nerves II through XII grossly intact. Normal speech. No gross focal deficits. PSYCH: Normal mood, normal affect. SKIN: Warm, dry. Active Medications Generic Name Dose Route Start Last Admin Trade Name Freq PRN Reason Stop Dose Admin Enoxaparin Sodium 60 mg 04/06/18 22:00 04/08/18 10:02 Lovenox - SQ 60 mg BID [facility] Administration ASSESSMENT/PLAN: Patient is a 72 year old female with history of COPD, hyperlipidemia, bladder cancer admitted to ICU for extensive pulmonary emboli, LLE DVT. Pulmonary -Numerous pulmonary emboli noted on CTA. Likely secondary to left common femoral and greater saphenous DVT. Patient endorses recent extended car ride in January. -Saturating well on room air. Currently not in any respiratory distress -Maintain oxygen saturation greater than 90% Cardiac -Cardiac ECHO shows pulmonary artery systolic pressure greater than 85mmHg consistent with pulmonary hypertension. LV normal is size, function LVEF 65-70% -Telemetry monitoring for hemodynamic stability -Cardiology consult appreciated Heme -Patient is on Lovenox 60mg subq BID for pulmonary emboli, and LLE DVT -Hematology, IR consults appreciated FEN -No IV fluids indicated. Encourage judicious oral hydsration -Within normal limits, follow CMP and replete as necessary -Regular diet Prophylaxis -Patient is on Lovenox 60mg subq BID for pulmonary emboli, and LLE DVT Disposition -Patient is medically stable for transfer to Telemetry floor Visit type - Emergency Visit Emergency Visit: Yes ED Registration Date: 04/06/18 Care time: The patient presented to the Emergency Department on the above date and was hospitalized for further evaluation of their emergent condition. - New Patient This patient is new to me today: Yes Date on this admission: 04/08/18 - Critical Care Critical Care patient: Yes Total Critical Care Time (in minutes): 35 Critical Care Statement: The care of this patient involved high complexity decision making to prevent further life threatening deterioration of the patient 's condition and/or to evaluate & treat vital organ system(s) failure or risk of failure. - Discharge Referral Referred to [facility] Med [facility] No
--- NOTE | 2018-04-08 15:39 | PN ---
Progress Note, Physician Chief Complaint: Cardiology FU Telem NSR with APC. No dyspnea Echo results noted History of Present Illness: 72 year old female with a PMH of COPD admitted 04/06/18 complaining of a 1 month history of shortness of breath and right leg swelling for 2 days. She was found with an extensive left leg DVT on sonogram and Pulmonary embolism in addition to severe COPD. Echocardiogram with normal biventricular function and severe pulmonary HTN. No chest pain, orthopnea, pnd. No palpitations, dizziness or syncope. - Current Medication List Current Medications: Active Medications Enoxaparin Sodium (Lovenox -) 60 mg SQ BID PAPA Last Admin: 04/08/18 10:02 Dose: 60 mg - Objective Vital Signs: Vital Signs Temperature 98.9 F 04/08/18 15:07 Pulse Rate 103 H 04/08/18 15:07 Respiratory Rate 20 04/08/18 15:07 Blood Pressure 108/55 L 04/08/18 15:07 O2 Sat by Pulse Oximetry (%) 96 04/08/18 09:00 Constitutional: Yes: Well Nourished, No Distress Eyes: Yes: Conjunctiva Clear, EOM Intact HENT: Yes: Atraumatic, Normocephalic Neck: Yes: Supple, Trachea Midline Cardiovascular: Yes: Regular Rate and Rhythm, S1, S2. No: JVD Respiratory: Yes: Regular, CTA Bilaterally Gastrointestinal: Yes: Normal Bowel Sounds, Soft Edema: Yes Edema: LLE: 1+ Labs: CBC, BMP 04/07/18 06:00 04/07/18 06:00 INR, PTT INR 1.16 (0.83-1.09) H 04/06/18 11:39 Problem List - Problems (1) COPD (chronic obstructive pulmonary disease) Code(s): J44.9 - CHRONIC OBSTRUCTIVE PULMONARY DISEASE, UNSPECIFIED (2) DVT (deep venous thrombosis) Code(s): I82.409 - ACUTE EMBOLISM AND THOMBOS UNSP DEEP VN UNSP LOWER EXTREMITY Qualifiers: DVT location: lower extremity Affected thrombotic vein of extremity: femoral Chronicity: unspecified Laterality: left Qualified Code(s): I82.412 - Acute embolism and thrombosis of left femoral vein (3) Pulmonary embolism Code(s): I26.99 - OTHER PULMONARY EMBOLISM WITHOUT ACUTE COR PULMONALE Qualifiers: Pulmonary embolism type: unspecified Chronicity: unspecified Acute cor pulmonale presence: without acute cor pulmonale Qualified Code(s): I26.99 - Other pulmonary embolism without acute cor pulmonale Assessment/Plan 72 year old female with a PMH of COPD admitted 04/06/18 complaining of a 1 month history of shortness of breath and right leg swelling for 2 days. She was found with an extensive left leg DVT on sonogram in addition to multilobar PEs and severe COPD. Echocardiogram with normal biventricular function and severe pulmonary HTN. 1-Pulmonary HTN: possible multifactorial due to COPD but also possibly from Pulm Emboli. Would treat PEs with AC and repeat Pulm pressures (echocardiogram) in 1-2 months before deciding if invasive management-Right heart cath-is needed. 2-PE: May be candidate for NOAC.
[2018-04-09 06:29] LABS: HEMATOCRIT 33.3 % (32.4-45.2); HEMOGLOBIN 10.9 GM/dL (10.7-15.3); MCHC 32.8 g/dl (32.0-36.0); MEAN CELL VOLUME 82.3 fl (80-96); MEAN PLT VOLUME 7.8 fl (7.5-11.1); PLATELET COUNT 362 K/MM3 (134-434); RBC 4.04 M/mm3 (3.60-5.2); RDW 15.1 % (11.6-15.6); WHITE BLOOD COUNT 6.5 K/mm3 (4.0-10.0)
[2018-04-09 07:06] LABS: ALBUMIN 2.8 g/dl (3.4-5.0); ALK PHOS 45 U/L (45-117); ANION GAP 5 MMOL/L (8-16); BILIRUBIN,TOTAL 0.5 mg/dL (0.2-1); BLOOD UREA NITROGEN 18 mg/dL (7-18); CALCIUM 8.2 mg/dL (8.5-10.1); CHLORIDE 108 mmol/L (98-107); CO2 27 mmol/L (21-32); CREATININE 0.7 mg/dL (0.55-1.3); GLUCOSE,RANDOM 88 mg/dL (74-106); MAGNESIUM 2.1 mg/dL (1.8-2.4); PHOSPHOROUS 3.7 mg/dL (2.5-4.9); POTASSIUM 4.2 mmol/L (3.5-5.1); SGOT/AST 13 U/L (15-37); SGPT/ALT 18 U/L (13-61); SODIUM 140 mmol/L (136-145); TOT PROT 6.5 g/dl (6.4-8.2)
--- NOTE | 2018-04-09 09:08 | PN ---
Progress Note, Physician Chief Complaint: AWAKE ALERT DENIES CHEST PAIN +SOB - Current Medication List Current Medications: Active Medications Enoxaparin Sodium (Lovenox -) 60 mg SQ BID PAPA Last Admin: 04/08/18 21:47 Dose: 60 mg - Objective Vital Signs: Vital Signs Temperature 98.2 F 04/09/18 08:00 Pulse Rate 104 H 04/09/18 08:00 Respiratory Rate 11 04/09/18 08:00 Blood Pressure 114/69 04/09/18 08:00 O2 Sat by Pulse Oximetry (%) 96 04/08/18 21:00 Constitutional: Yes: Mild Distress Eyes: Yes: WNL HENT: Yes: WNL Neck: Yes: WNL Cardiovascular: Yes: WNL Respiratory: Yes: Diminished Gastrointestinal: Yes: WNL Genitourinary: Yes: WNL Musculoskeletal: Yes: WNL Extremities: Yes: WNL Edema: No Peripheral Pulses WNL: Yes Integumentary: Yes: WNL Wound/Incision: Yes: Clean/Dry Neurological: Yes: WNL ...Motor Strength: WNL Psychiatric: Yes: WNL Labs: CBC, BMP 04/09/18 05:30 04/09/18 05:30 INR, PTT INR 1.16 (0.83-1.09) H 04/06/18 11:39 Problem List - Problems (1) COPD (chronic obstructive pulmonary disease) Code(s): J44.9 - CHRONIC OBSTRUCTIVE PULMONARY DISEASE, UNSPECIFIED (2) DVT (deep venous thrombosis) Code(s): I82.409 - ACUTE EMBOLISM AND THOMBOS UNSP DEEP VN UNSP LOWER EXTREMITY Qualifiers: DVT location: lower extremity Affected thrombotic vein of extremity: femoral Chronicity: unspecified Laterality: left Qualified Code(s): I82.412 - Acute embolism and thrombosis of left femoral vein (3) Hypoxemia Code(s): R09.02 - HYPOXEMIA (4) Pulmonary embolism Code(s): I26.99 - OTHER PULMONARY EMBOLISM WITHOUT ACUTE COR PULMONALE Qualifiers: Pulmonary embolism type: unspecified Chronicity: unspecified Acute cor pulmonale presence: without acute cor pulmonale Qualified Code(s): I26.99 - Other pulmonary embolism without acute cor pulmonale (5) Pulmonary hypertension Code(s): I27.20 - PULMONARY HYPERTENSION, UNSPECIFIED Assessment/Plan STARTING ELIQUIS 5MG BID STOP LOVENOX HEME/ONCOLOGY W/UP TO RULE OUT ANY NEOPLASTIC DISEASE WHICH MAY HAVE CAUSED EMBOLI? PULMONARY HTN WILL NEED PULM/CARDIO WORKUP DC PLANNING TOMORROW MORNING
[2018-04-09] MEDS: ENOXAPARIN NA (PORCINE) 60 MG/0.6 ML DISP.SYRIN SQ SCH (10:00)
--- NOTE | 2018-04-09 11:01 | PN ---
Progress Note, Physician History of Present Illness: seen and examined today in nad. no overnight events. no new complaints. denies chest pain, sob nearly resolved. - Current Medication List Current Medications: Active Medications Enoxaparin Sodium (Lovenox -) 60 mg SQ BID PAPA Last Admin: 04/09/18 10:00 Dose: 60 mg - Objective Vital Signs: Vital Signs Temperature 98.3 F 04/09/18 08:00 Pulse Rate 106 H 04/09/18 08:00 Respiratory Rate 11 04/09/18 08:00 Blood Pressure 114/69 04/09/18 08:00 O2 Sat by Pulse Oximetry (%) 99 04/09/18 08:00 Constitutional: Yes: No Distress, Calm Eyes: Yes: Conjunctiva Clear, EOM Intact HENT: Yes: Atraumatic, Normocephalic Neck: Yes: Supple, Trachea Midline Cardiovascular: Yes: Regular Rate and Rhythm, S1, S2. No: Bradycardia, Tachycardia, Pulse Irregular, Bruit, JVD, Gallop, Murmur, Rub, S3, S4, Varicosities Respiratory: Yes: Regular, CTA Bilaterally. No: Rales, Rhonchi, SOB, Wheezes Gastrointestinal: Yes: Normal Bowel Sounds, Soft. No: Distention ...Rectal Exam: Yes: WNL Genitourinary: Yes: WNL Breast(s): Yes: WNL Musculoskeletal: Yes: WNL Extremities: Yes: WNL Edema: No Peripheral Pulses WNL: Yes Neurological: Yes: Alert, Oriented Psychiatric: Yes: Alert, Oriented Labs: CBC, BMP 04/09/18 05:30 04/09/18 05:30 INR, PTT INR 1.16 (0.83-1.09) H 04/06/18 11:39 - ....Imaging Chest X-ray: Report Reviewed, Image Reviewed EKG: Report Reviewed, Image Reviewed Other: Report Reviewed, Image Reviewed (tele-nsr, sinus tach) Assessment/Plan 72 year old female with a PMH of COPD admitted 04/06/18 complaining of a 1 month history of shortness of breath and right leg swelling for 2 days. She was found with an extensive left leg DVT on sonogram in addition to multilobar PEs and severe COPD. Echocardiogram with normal biventricular function and severe pulmonary HTN. Pulmonary HTN: possible multifactorial due to COPD but also possibly from Pulm Emboli. -Plan to treat PEs with AC and repeat Pulm pressures (echocardiogram) in 1-2 months before deciding if invasive management-Right heart cath-is needed. PE: -plan is for pt to be transitioned to eliquis -tele has shown only nsr, mild sinus tach, no sig arrhythmias -ok to dc tele No additional inpatient cardiac work up needed at this time. Please call with any additional questions.
--- NOTE | 2018-04-09 14:51 | PN ---
Progress Note, Physician History of Present Illness: PULMONARY ALERT,COMFORTABLE,-RESP DISTRESS,ON ELIQUIS - Current Medication List Current Medications: Active Medications Apixaban (Eliquis -) 5 mg PO BID PAPA - Objective Vital Signs: Vital Signs Temperature 97.8 F 04/09/18 14:04 Pulse Rate 102 H 04/09/18 14:04 Respiratory Rate 04/09/18 14:04 Blood Pressure 105/70 04/09/18 14:04 O2 Sat by Pulse Oximetry (%) 99 04/09/18 08:00 Constitutional: Yes: Well Nourished, Calm Eyes: Yes: WNL HENT: Yes: WNL Neck: Yes: WNL Cardiovascular: Yes: Regular Rate and Rhythm, S1, S2 Respiratory: Yes: CTA Bilaterally Gastrointestinal: Yes: Normal Bowel Sounds, Soft Extremities: Yes: WNL, Other (LESS SWELLING LLE) Labs: CBC, BMP 04/09/18 05:30 04/09/18 05:30 INR, PTT INR 1.16 (0.83-1.09) H 04/06/18 11:39 Problem List - Problems (1) COPD (chronic obstructive pulmonary disease) Code(s): J44.9 - CHRONIC OBSTRUCTIVE PULMONARY DISEASE, UNSPECIFIED (2) DVT (deep venous thrombosis) Code(s): I82.409 - ACUTE EMBOLISM AND THOMBOS UNSP DEEP VN UNSP LOWER EXTREMITY Qualifiers: DVT location: lower extremity Affected thrombotic vein of extremity: femoral Chronicity: unspecified Laterality: left Qualified Code(s): I82.412 - Acute embolism and thrombosis of left femoral vein (3) Pulmonary embolism Code(s): I26.99 - OTHER PULMONARY EMBOLISM WITHOUT ACUTE COR PULMONALE Qualifiers: Pulmonary embolism type: unspecified Chronicity: unspecified Acute cor pulmonale presence: without acute cor pulmonale Qualified Code(s): I26.99 - Other pulmonary embolism without acute cor pulmonale (4) Hypoxemia Code(s): R09.02 - HYPOXEMIA (5) SOB (shortness of breath) on exertion Code(s): R06.02 - SHORTNESS OF BREATH Assessment/Plan Assessment/Plan Acute LLE DVT with bilateral PE (does report extended car travel in January) COPD History of bladder CA Eliquis 10mg po bid x7 days then 5mg po bid O2 as needed OOB to chair w/u for hypercoagulable state as outpatient DR NEFF
[2018-04-09] MEDS: APIXABAN 5 MG TABLET PO SCH (21:28)
[2018-04-09] MEDS ORDERED: APIXABAN 5 MG TABLET PO SCH (22:00)
[2018-04-10 04:13] LABS: CARCINOEMBRYONIC ANTIGEN 3.1 ng/mL (0.0-4.7)
[2018-04-10] MEDS: APIXABAN 5 MG TABLET PO SCH (10:13)
--- NOTE | 2018-04-10 10:36 | PN ---
Progress Note (short form) - Note Progress Note: PULMONARY Still some dyspnea with exertion but breathing much improved. Vital Signs Period Temp Pulse Resp BP Sys/Lozano Pulse Ox Last 24 Hr 97.5 F-98.4 F 77-98 17-19 93-103/56-64 99 Gen: NAD at rest Heart: RRR Lung: decreased breath sounds at the bases Abd: soft, nontender Ext: no edema CBC, BMP 04/09/18 05:30 04/09/18 05:30 A/P Acute Pulmonary Emboli Acute LLE DVT +Troponins COPD Lung Nodule h/o Bladder Ca - continue anticoagulation - O2 to keep SpO2 >90% - will need outpt f/u of lung nodule
--- NOTE | 2018-04-10 12:28 | DS ---
Physical Examination Vital Signs: Vital Signs Temperature 97.5 F L 04/10/18 10:00 Pulse Rate 77 04/10/18 10:00 Respiratory Rate 18 04/10/18 10:00 Blood Pressure 102/56 L 04/10/18 10:00 O2 Sat by Pulse Oximetry (%) 99 04/10/18 09:00 Findings/Remarks: WALKED OVER 500 FT NO DYSPNEA Constitutional: Yes: No Distress Eyes: Yes: WNL HENT: Yes: WNL Neck: Yes: WNL Cardiovascular: Yes: WNL Respiratory: Yes: Diminished Gastrointestinal: Yes: WNL Musculoskeletal: Yes: WNL Extremities: Yes: WNL Edema: No Peripheral Pulses WNL: Yes Integumentary: Yes: WNL Wound/Incision: Yes: Clean/Dry Neurological: Yes: WNL ...Motor Strength: WNL Psychiatric: Yes: WNL Labs: CBC, BMP 04/09/18 05:30 04/09/18 05:30 Discharge Summary Reason For Visit: DVT/PULMONARY EMBOLISM Current Active Problems COPD (chronic obstructive pulmonary disease) (Acute) DVT (deep venous thrombosis) (Acute) Hypoxemia (Acute) Pulmonary embolism (Acute) Pulmonary hypertension (Acute) SOB (shortness of breath) on exertion (Acute) Procedures: Principal: CTA Hospital Course: POSITIVE DVT WITH PULMONARY EMBOLISM, WORKUP UNDERWAY COMPLETING OUTPATIENT. 6 MONTHS OF ELIQUIS Condition: Fair - Instructions Diet, Activity, Other Instructions: SEE DR CHRISTINE IN 2 WEEKS Referrals: Inna Christine MD [Primary Care Provider] - Disposition: HOME - Home Medications Comprehensive Discharge Medication List: Ambulatory Orders Ascorbate Calcium [Vitamin C] 500 mg PO DAILY 01/12/15 Cholecalciferol (Vitamin D3) [Vitamin D3] 2,000 unit PO DAILY 01/12/15 Magnesium 250 mg PO DAILY 01/12/15 Vit B Comp/C/Folic/Iron/Vit E [Vitamin B Complex Tablet] 1 cap PO DAILY Ubidecarenone/Vit E Acet [Co Q-10 100 mg Softgel] 1 each PO DAILY 05/29/16 Apixaban [Eliquis -] 5 mg PO BID #60 tablet 04/10/18
[2018-04-10 18:50] VITALS: BP 100/62; PULSE 80; TEMP 97.8
== END 2018-04-10 18:40 | disposition home or self-care (01) | DRG 299 ==
LOC: JER 10:57 → JERBED 16:14 → J4W 22:19 → JICU 04-07 21:43 → J2W 04-08 20:41
PROVIDERS: ADMIT Family Medicine; ATTEND Family Medicine
DX: I82.412 Acute embolism and thrombosis of left femoral vein (principal); I26.99 Other pulmonary embolism without acute cor pulmonale; R09.02 Hypoxemia; I27.20 Pulmonary hypertension, unspecified; J43.9 Emphysema, unspecified; Z85.51 Personal history of malignant neoplasm of bladder; Z87.891 Personal history of nicotine dependence; E78.5 Hyperlipidemia, unspecified; R91.1 Solitary pulmonary nodule
CPT/HCPCS: 36415; 71045-TC-FY; 71275-TC; 80053; 82378; 82550; 82553; 83735; 83880; 84100; 84484; 85025; 85027; 85610; 85730; 86301; 86304; 93005; 93010; 93306-TC; 93970-TC; 99284-25

== ENCOUNTER 2019-09-06 18:34 | Emergency (ER) | payer BC ==
[2019-09-06 18:51] VITALS: BP 155/79; PULSE 90; TEMP 97.8; BMI 26.5
--- NOTE | 2019-09-06 18:52 | PDOC ---
Rapid Medical Evaluation Chief Complaint: Edema Time Seen by Provider: 09/06/19 18:49 Medical Evaluation: Allergies Allergy/AdvReac Type Severity Reaction Status Date / Time ciprofloxacin [From Cipro] Allergy Verified 05/05/19 11:24 ciprofloxacin HCl Allergy Verified 05/05/19 11:24 [From Cipro] acetaminophen AdvReac Intermediate Itching Verified 04/06/18 11:12 [From Tylenol-Codeine #3] codeine phosphate AdvReac Intermediate Itching Verified 05/05/19 11:24 [From Tylenol-Codeine #3] 09/06/19 18:50 CC: rt foot intermittent x 2 weeks , resolved in the am and noted at nigh, no pain. no change in sensation Exam: noted darkened skin to mary shis, trace edeam mary, 2+ dorsal ped pulse Plan: Discharge Disposition - Diagnosis Foot swelling - Referrals - Patient Instructions - Post Discharge Activity
--- NOTE | 2019-09-06 19:46 | PDOC ---
History of Present Illness - General Chief Complaint: Edema Stated Complaint: SWOLLEN FOOT Time Seen by Provider: 09/06/19 18:49 History Source: Patient Exam Limitations: Clinical Condition - History of Present Illness Initial Comments: 09/06/19 19:42 Patient with past medical history of COPD, hyperlipidemia, venous insufficiency and DVT a year ago for 6 months anticoagulated therapy presented with complaint of swelling around right ankle which has been intermittent for 2 weeks now. Patient reports swelling is worse at night when she sleeping and with prolonged standing. Reports swelling is better during the day even though not completely resolved. Denies calf pain, shortness of breath, palpitation, numbness or tingling sensation. Patient reported came in today because swelling has been going on for too long when she wants to make sure there is nothing wrong. Denies any other symptoms Is this a multiple visit Asthma Patient?: No Past History - Medical History Allergies/Adverse Reactions: Allergies Allergy/AdvReac Type Severity Reaction Status Date / Time ciprofloxacin [From Cipro] Allergy Verified 05/05/19 11:24 ciprofloxacin HCl Allergy Verified 05/05/19 11:24 [From Cipro] acetaminophen AdvReac Intermediate Itching Verified 04/06/18 11:12 [From Tylenol-Codeine #3] codeine phosphate AdvReac Intermediate Itching Verified 05/05/19 11:24 [From Tylenol-Codeine #3] Home Medications: Ambulatory Orders Ascorbate Calcium [Vitamin C] 500 mg PO DAILY 01/12/15 Cholecalciferol (Vitamin D3) [Vitamin D3] 2,000 unit PO DAILY 01/12/15 Magnesium 250 mg PO DAILY 01/12/15 Vit B Comp/C/Folic/Iron/Vit E [Vitamin B Complex Tablet] 1 cap PO DAILY 01/12/15 Ubidecarenone [Coq-10] 1 tab PO Q2D 05/05/19 Anemia: No Asthma: No (EMPHYSEMA) Cancer: Yes (bladder ca 11 yrs ago) Cardiac Disorders: No CVA: No COPD: Yes CHF: No Dementia: No Diabetes: No GI Disorders: No Disorders: Yes (CA bladder) HTN: No Hypercholesterolemia: Yes Liver Disease: No Seizures: No Thyroid Disease: No - Surgical History Orthopedic Surgery: Yes (broken bone with pin on right foot) - Psycho-Social/Smoking History Smoking History: Never smoked Have you smoked in the past 12 months: No If you are a former smoker, when did you quit?: 21 yrs ago Information on smoking cessation initiated: No - Substance Abuse Hx (Audit-C & DAST Scrn) How often the patient has a drink containing alcohol: Never Score: In Men: 4 or > Positive; In Women: 3 or > Positive: 0 Screen Result (Pos requires Nsg. Audit-10AR): Negative Review of Systems - Review of Systems Able to Perform ROS?: Yes Is the patient limited [place]ymra[place] proficient: No Constitutional: No: Chills, Fever, Malaise HEENTM: No: Symptoms Reported, See HPI, Eye Pain, Blurred Vision, Tearing, Recent change in vision, Double Vision, Cataracts, Ear Pain, Ocular Prothesis, Ear Discharge, Nose Pain, Nose Congestion, Tinnitus, Nose Bleeding, Hearing Loss, Throat Pain, Throat Swelling, Mouth Pain, Dental Problems, Difficulty Swallowing, Mouth Swelling, Other Respiratory: No: Symptoms reported, See HPI, Cough, Orthopnea, Shortness of Breath, SOB with Exertion, SOB at Rest, Stridor, Wheezing, Productive cough, Hemoptysis, Other Cardiac (ROS): No: Symptoms Reported ABD/GI: No: Symptoms Reported Musculoskeletal: No: Symptoms Reported, See HPI, Muscle Pain Integumentary: Yes: Symptoms Reported, See HPI, Other (Swelling around right ankle) Neurological: No: Symptoms reported, Numbness, Paresthesia, Tingling All Other Systems: Reviewed and Negative *Physical Exam - Vital Signs Last Vital Signs Temp Pulse Resp BP Pulse Ox 97.8 F 90 16 155/79 0 L 09/06/19 18:48 09/06/19 18:48 09/06/19 18:48 09/06/19 18:48 09/06/19 18:48 - Physical Exam General Appearance: Yes: Nourished, Appropriately Dressed. No: Apparent Distress HEENT: positive: Normal ENT Inspection Neck: positive: Supple Respiratory/Chest: positive: Lungs Clear, Normal Breath Sounds. negative: Chest Tender, Respiratory Distress, Accessory Muscle Use Cardiovascular: positive: Regular Rhythm, Regular Rate Musculoskeletal: positive: Normal Inspection. negative: Other (No tenderness to left ankle or calf muscle.) Extremity: positive: Normal Capillary Refill, Normal Inspection, Pedal Edema (Mild 1+ pitting edema to lateral aspect of right ankle and proximal foot. No swelling to calf muscle. Negative Homans sign). negative: Calf Tenderness, Erythema Integumentary: positive: Normal Color. negative: Cyanotic, Petechiae Neurologic: positive: Fully Oriented, Alert, Normal Mood/Affect, Normal Response, Motor Strength / ED Treatment Course - RADIOLOGY Radiology Studies Ordered: Category Date Time Status DUPLEX VASCUL US-1 LEG [US] Stat Ultrasound 09/06/19 19:37 Ordered Medical Decision Making - Medical Decision Making 09/06/19 19:43 Patient with past medical history of COPD, hyperlipidemia, venous insufficiency and DVT a year ago for 6 months anticoagulated therapy presented with complaint of swelling around right ankle which has been intermittent for 2 weeks now. Patient reports swelling is worse at night when she sleeping and with prolonged standing. Reports swelling is better during the day even though not completely resolved. Denies calf pain, shortness of breath, palpitation, numbness or tingling sensation. Patient reported came in today because swelling has been going on for too long when she wants to make sure there is nothing wrong. Denies any other symptoms Exam significant for mild 1+ pitting edema to lateral aspect of right ankle and proximal foot. Darkening of the skin around right ankle. No calf tenderness or swelling. Negative Homans sign. Patient symptoms likely venous insufficiency versus arterial insufficiency versus less likely DVT. Duplex ultrasound ordered to rule out DVT. Patient be discharged home if negative duplex with advised to do compression stockings with follow-up with her vascular specialist 09/06/19 21:22 Duplex ultrasound shows no DVT. Patient stable for discharge with advised to do compression stockings with vascular follow-up Discharge - Discharge Information Problems reviewed: Yes Clinical Impression/Diagnosis: Foot swelling Condition: Stable Disposition: HOME - Admission No - Follow up/Referral Referrals: Inna Christine MD [Primary Care Provider] - - Patient Discharge Instructions Patient Printed Discharge Instructions: DI for Peripheral Edema, Unilateral Additional Instructions: Your ultrasound done shows no blood clot and the swelling of the leg is likely caused by venous insufficiency. Use compression stockings as discussed to help with venous insufficiency to prevent further swelling. Keep leg elevated while at home. Follow-up with your vascular specialist - Post Discharge Activity
== END 2019-09-06 21:32 | disposition home or self-care (01) ==
LOC: JERFT 18:34
DX: M79.89 Other specified soft tissue disorders (principal)
CPT/HCPCS: 93971-TC; 99283-25

== ENCOUNTER 2019-11-06 11:38 | Emergency (ER) | payer BC, OTHER ==
[2019-11-06 11:44] VITALS: BMI 21.7
--- NOTE | 2019-11-06 12:41 | PDOC ---
History of Present Illness - General Chief Complaint: Nausea Stated Complaint: VOMITING Time Seen by Provider: 11/06/19 12:11 History Source: Patient Exam Limitations: Clinical Condition - History of Present Illness Initial Comments: 11/06/19 12:38 Patient with past medical history of bladder cancer and COPD presented with complaint of sudden onset of nausea and lightheadedness upon wake this morning which lasted for an hour and a half and resolved. Patient report symptoms s tarted as soon as she got out of bed and sat on her bed for 1 hour before starting to feel better. Patient reported also had some mild epigastric pain when having the nausea which has also resolved with no pain now. Denies vomiting, chest pain, palpitations, spinning sensation, diarrhea, constipation, fever, chills, shortness of breath. Last bowel movement was this morning which was normal. Denies any other symptoms Is this a multiple visit Asthma Patient?: No Timing/Duration: resolved prior to arrival Past History - Medical History Allergies/Adverse Reactions: Allergies Allergy/AdvReac Type Severity Reaction Status Date / Time ciprofloxacin [From Cipro] Allergy Verified 11/06/19 11:44 ciprofloxacin HCl Allergy Verified 11/06/19 11:44 [From Cipro] acetaminophen AdvReac Intermediate Itching Verified 11/06/19 11:44 [From Tylenol-Codeine #3] codeine phosphate AdvReac Intermediate Itching Verified 11/06/19 11:44 [From Tylenol-Codeine #3] Home Medications: Ambulatory Orders NK [No Known Home Medication] 11/06/19 Anemia: No Asthma: No (EMPHYSEMA) Cancer: Yes (bladder ca 11 yrs ago) Cardiac Disorders: No CVA: No COPD: Yes CHF: No Dementia: No Diabetes: No GI Disorders: No Disorders: Yes (CA bladder) HTN: No Hypercholesterolemia: Yes Liver Disease: No Seizures: No Thyroid Disease: No - Surgical History Orthopedic Surgery: Yes (broken bone with pin on right foot) - Reproductive History Is Patient Now?: No - Psycho-Social/Smoking History Smoking History: Never smoked Have you smoked in the past 12 months: No If you are a former smoker, when did you quit?: 21 yrs ago Information on smoking cessation initiated: No - Substance Abuse Hx (Audit-C & DAST Scrn) How often the patient has a drink containing alcohol: Never Score: In Men: 4 or > Positive; In Women: 3 or > Positive: 0 Screen Result (Pos requires Nsg. Audit-10AR): Negative In the last yr the pt used illegal drug/Rx for NonMed reason: No Score: Yes response is considered Positive: 0 Screen Result (Positive result requires Nsg. DAST-10): Negative Review of Systems - Review of Systems Able to Perform ROS?: Yes Is the patient limited [place] proficient: No Constitutional: No: Chills, Fever, Malaise HEENTM: No: Symptoms Reported, See HPI, Eye Pain, Blurred Vision, Tearing, Recent change in vision, Double Vision, Cataracts, Ear Pain, Ocular Prothesis, Ear Discharge, Nose Pain, Nose Congestion, Tinnitus, Nose Bleeding, Hearing Loss, Throat Pain, Throat Swelling, Mouth Pain, Dental Problems, Difficulty Swallowing, Mouth Swelling, Other Respiratory: No: Symptoms reported, See HPI, Cough, Orthopnea, Shortness of Breath, SOB with Exertion, SOB at Rest, Stridor, Wheezing, Productive cough, Hemoptysis, Other Cardiac (ROS): No: Symptoms Reported, See HPI, Chest Pain, Edema, Irregular Heart Rate, Lightheadedness, Palpitations, Syncope, Chest Tightness, Other ABD/GI: Yes: Symptoms Reported, See HPI, Nausea (RESOLVED), Abdominal cramping (epigastric pain resolved). No: Abd. Pain w/ defecation, Blood Streaked Bowels, Constipated, Diarrhea, Difficulty Swallowing, Poor Appetite, Poor Fluid Intake, Rectal Bleeding, Vomiting, Indigestion : No: Symptoms Reported Musculoskeletal: No: Symptoms Reported Integumentary: No: Symptoms Reported Neurological: No: Symptoms reported, Headache, Numbness, Dizziness All Other Systems: Reviewed and Negative *Physical Exam - Vital Signs Last Vital Signs Temp Pulse Resp BP Pulse Ox 97.5 F L 85 17 136/81 99 11/06/19 11:39 11/06/19 11:39 11/06/19 11:39 11/06/19 11:39 11/06/19 11:39 - Physical Exam 11/06/19 12:42 GENERAL: Well developed, well nourished. Awake and alert. No acute distress. HEENT: Normocephalic, atraumatic. PERRLA, EOMI. No conjunctival pallor. Sclera are non-icteric. Moist mucous membranes. Oropharynx is clear. NECK: Supple. Full ROM. CARDIOVASCULAR: Regular rate and rhythm. No murmurs, rubs, or gallops. Distal pulses are 2+ and symmetric. PULMONARY: No evidence of respiratory distress. Lungs clear to auscultation bilaterally. No wheezing, rales or rhonchi. ABDOMINAL: Soft. Non-tender. Non-distended. No rebound or guarding. No organomegaly. Normoactive bowel sounds. MUSCULOSKELETAL Normal range of motion at all joints. EXTREMITIES: No cyanosis. No clubbing. No edema. No calf tenderness. SKIN: Warm and dry. Normal capillary refill. No rashes. No jaundice. NEUROLOGICAL: Alert, awake, appropriate. Gait is normal without ataxia. PSYCHIATRIC: Cooperative. Good eye contact. Appropriate mood General Appearance: Yes: Nourished, Appropriately Dressed. No: Apparent Distress ED Treatment Course - LABORATORY CBC & Chemistry Diagram: 11/06/19 12:30 11/06/19 12:30 Medical Decision Making - Medical Decision Making 11/06/19 12:40 Patient with past medical history of bladder cancer and COPD presented with complaint of sudden onset of nausea and lightheadedness upon wake this morning which lasted for an hour and a half and resolved. Patient report symptoms started as soon as she got out of bed and sat on her bed for 1 hour before starting to feel better. Patient reported also had some mild epigastric pain when having the nausea which has also resolved with no pain now. Denies vomiting, chest pain, palpitations, spinning sensation, diarrhea, constipation, fever, chills, shortness of breath. Last bowel movement was this morning which was normal. Denies any other symptoms Clinical exam unremarkable with normal cardio and lung exam. Patient in no acute distress and talking to son over the phone in no distress. No abdominal tenderness on exam. Symptoms likely vasovagal reaction versus less likely cardiogenic symptoms versus UTI CBC, CMP and cardiac profile labs ordered to rule out acute cardiogenic abnormality. EKG ordered. UA and urine culture ordered to rule out cystitis. Treat based on lab and imaging results Discharge - Discharge Information Problems reviewed: Yes Clinical Impression/Diagnosis: Nausea alone Condition: Improved Disposition: HOME - Admission No - Follow up/Referral Referrals: Inna Christine MD [Primary Care Provider] - - Patient Discharge Instructions Patient Printed Discharge Instructions: DI for Nausea -- Adult Additional Instructions: Your blood work is normal. Your EKG is normal. Your urine lab was normal as well. Your nausea was likely caused by vasovagal reaction. Increase fluid intake. Follow-up with your primary care. Come back to emergency room if nausea returns with dizziness or worsening symptoms - Post Discharge Activity
[2019-11-06 12:45] LABS: BASO % 0.3 % (0-2.0); EOS % 0.5 % (0-4.5); HEMATOCRIT 40.6 % (32.4-45.2); LYMPH % 10.4 % (8-40); MCH 26.9 pg (25.7-33.7); MEAN CELL VOLUME 83.9 fl (80-96); MEAN PLT VOLUME 7.9 fl (7.5-11.1); NEUT % 85.8 % (42.8-82.8); PLATELET COUNT 531 K/MM3 (134-434); RBC 4.84 M/mm3 (3.60-5.2); RDW 14.3 % (11.6-15.6); WHITE BLOOD COUNT 9.1 K/mm3 (4.0-10.0)
[2019-11-06 13:23] LABS: ALBUMIN 4.1 g/dl (3.4-5.0); ALK PHOS 52 U/L (45-117); ANION GAP 7 MMOL/L (8-16); BILIRUBIN,TOTAL 0.8 mg/dL (0.2-1); BLOOD UREA NITROGEN 14.5 mg/dL (7-18); CALCIUM 9.9 mg/dL (8.5-10.1); CHLORIDE 108 mmol/L (98-107); CO2 26 mmol/L (21-32); CREATININE 0.8 mg/dL (0.55-1.3); GLUCOSE,RANDOM 81 mg/dL (74-106); LIPASE 74 U/L (73-393); POTASSIUM 5.4 mmol/L (3.5-5.1); SGOT/AST 23 U/L (15-37); SGPT/ALT 25 U/L (13-61); SODIUM 141 mmol/L (136-145); TOT PROT 8.3 g/dl (6.4-8.2)
[2019-11-06 14:08] LABS: EPI CELLS 5 /uL (0-25.1); HYALINE CASTS 1 /uL (0-3.1); URINE APPEARANCE CLEAR; URINE BACTERIA 58 /uL (0-1359); URINE BILIRUBIN NEGATIVE (NEGATIVE); URINE COLOR YELLOW; URINE GLUCOSE (UA) NEGATIVE (NEGATIVE); URINE KETONE TRACE (NEGATIVE); URINE LEUK ESTERASE TRACE (NEGATIVE); URINE NITRITE NEGATIVE (NEGATIVE); URINE PROTEIN NEGATIVE (NEGATIVE); URINE RBC 3 /uL (0-23.9); URINE UROBILINOGEN 0.2 mg/dL (0.2-1.0); URINE WBC 5 /uL (0-25.8)
[2019-11-06 14:33] VITALS: BP 138/79; PULSE 75; TEMP 98
--- NOTE | 2019-11-07 09:20 | EKG ---
Test Reason : Blood Pressure : / mmHG Vent. Rate : 071 BPM Atrial Rate : 071 BPM P-R Int : 150 ms QRS Dur : 074 ms QT Int : 376 ms P-R-T Axes : 071 013 040 degrees QTc Int : 408 ms SINUS RHYTHM WITH PREMATURE SUPRAVENTRICULAR COMPLEXES POSSIBLE LEFT ATRIAL ENLARGEMENT WHEN COMPARED WITH ECG OF 07-APR-2018 11:21, NO SIGNIFICANT CHANGE WAS FOUND Confirmed by MARTHA THORPE MD ([id number]) on 11/07/2019 9:20:27 AM Referred By: Confirmed By:MARTHA THORPE MD
== END 2019-11-06 14:33 | disposition home or self-care (01) ==
LOC: JER 11:38
DX: R11.10 Vomiting, unspecified (principal)
CPT/HCPCS: 36415; 80053; 81003; 82550; 82553; 83690; 84484; 85025; 87077; 87086; 87186; 93005; 93010; 99284-25

== ENCOUNTER 2020-08-10 20:16 | Inpatient (IN) | payer OTHER, BC ==
[2020-08-10 23:34] LABS: BASO % 0.9 % (0-2.0); EOS % 1.5 % (0-4.5); HEMATOCRIT 37.8 % (32.4-45.2); HEMOGLOBIN 12.3 GM/dL (10.7-15.3); LYMPH % 9.9 % (8-40); MCH 26.4 pg (25.7-33.7); MCHC 32.5 g/dl (32.0-36.0); MEAN CELL VOLUME 81.1 fl (80-96); MEAN PLT VOLUME 7.8 fl (7.5-11.1); MONO % 6.1 % (3.8-10.2); NEUT % 81.6 % (42.8-82.8); PLATELET COUNT 463 10^3/uL (134-434); RBC 4.66 M/mm3 (3.60-5.2); RDW 13.6 % (11.6-15.6); WHITE BLOOD COUNT 12.1 K/mm3 (4.0-10.0)
[2020-08-10 23:40] LABS: INR 1.15 (0.83-1.09); PROTHROMBIN TIME (PATIENT) 14.1 SEC (9.7-13.0)
[2020-08-10 23:43] LABS: ACTIVATED PTT 23.1 SECONDS (25.2-36.5)
[2020-08-10 23:55] LABS: CALCIUM 9.8 mg/dL (8.5-10.1)
[2020-08-10 23:56] LABS: ALBUMIN 3.9 g/dl (3.4-5.0); BLOOD UREA NITROGEN 13.6 mg/dL (7-18)
[2020-08-10 23:59] LABS: CREATININE 0.7 mg/dL (0.55-1.3)
[2020-08-11] LABS: BILIRUBIN,TOTAL 0.8 mg/dL (0.2-1)
[2020-08-11 00:01] LABS: TOT PROT 8.1 g/dl (6.4-8.2)
[2020-08-11] MEDS ORDERED: HEPARIN NA (PORCINE) 5,000 UNITS/ML 1ML VIAL IVPUSH PRN ×2 (03:13)
[2020-08-11] MEDS ORDERED: HEPARIN INFUSION - 25,000 UNITS/500 ML INFUS.BAG IVPB ONE (03:56)
[2020-08-11] MEDS: HEPARIN - 25,000 UNIT in SODIUM CHLORIDE 495 ML IV SCH ×2 (04:11→10:16)
[2020-08-11] MEDS ORDERED: HEPARIN NA (PORCINE) 5,000 UNITS/ML 1ML VIAL ONE (10:15)
[2020-08-12] MEDS: HEPARIN - 25,000 UNIT in SODIUM CHLORIDE 495 ML IV SCH ×2 (04:30→08:07)
[2020-08-12 08:42] LABS: BASO % 0.7 % (0-2.0); EOS % 2.8 % (0-4.5); HEMATOCRIT 39.9 % (32.4-45.2); HEMOGLOBIN 12.7 GM/dL (10.7-15.3); LYMPH % 11.3 % (8-40); MCH 26.2 pg (25.7-33.7); MCHC 31.7 g/dl (32.0-36.0); MEAN CELL VOLUME 82.6 fl (80-96); MEAN PLT VOLUME 8.1 fl (7.5-11.1); MONO % 6.5 % (3.8-10.2); NEUT % 78.7 % (42.8-82.8); PLATELET COUNT 589 10^3/uL (134-434); RBC 4.83 M/mm3 (3.60-5.2); RDW 13.7 % (11.6-15.6); WHITE BLOOD COUNT 10.5 K/mm3 (4.0-10.0)
[2020-08-12 09:08] LABS: CALCIUM 9.3 mg/dL (8.5-10.1)
[2020-08-12 09:09] LABS: BLOOD UREA NITROGEN 9.5 mg/dL (7-18)
[2020-08-12 09:12] LABS: CREATININE 0.7 mg/dL (0.55-1.3)
[2020-08-12] MEDS: APIXABAN 5 MG TABLET PO SCH ×2 (10:30→21:10)
[2020-08-12 15:59] VITALS: BMI 19.6
[2020-08-12] MEDS ORDERED: SODIUM CHLORIDE 1,000 ML IV SCH (16:30)
[2020-08-13 08:59] LABS: HEMOGLOBIN 11.6 GM/dL (10.7-15.3); MCH 25.8 pg (25.7-33.7); MCHC 31.4 g/dl (32.0-36.0); MEAN CELL VOLUME 82.2 fl (80-96); MEAN PLT VOLUME 7.9 fl (7.5-11.1); PLATELET COUNT 527 10^3/uL (134-434); RDW 13.8 % (11.6-15.6)
[2020-08-13] MEDS: APIXABAN 5 MG TABLET PO SCH (10:01)
[2020-08-13 13:06] VITALS: BP 143/76; PULSE 88; TEMP 98.9
[2020-08-14 16:08] LABS: PROTEIN S FREE 38 % (57-157)
== END 2020-08-13 17:23 | disposition home or self-care (01) | DRG 299 ==
LOC: JER 20:16 → JERBED 08-11 03:13 → J5S 08-11 13:58
PROVIDERS: ADMIT Hospitalist; ATTEND Family Medicine
DX: I82.431 Acute embolism and thrombosis of right popliteal vein (principal); I26.99 Other pulmonary embolism without acute cor pulmonale; I82.441 Acute embolism and thrombosis of right tibial vein; I82.412 Acute embolism and thrombosis of left femoral vein; I27.20 Pulmonary hypertension, unspecified; J44.9 Chronic obstructive pulmonary disease, unspecified; E78.00 Pure hypercholesterolemia, unspecified; Z85.51 Personal history of malignant neoplasm of bladder
CPT/HCPCS: 36415; 71275-TC; 74176-TC; 80048; 80053; 81240; 81241; 82272; 84484; 85025; 85027; 85302; 85305; 85306; 85610; 85730; 93005; 93010; 93306-TC; 93970-TC; 99285-25; C9803; J1644; U0003; U0005

== ENCOUNTER 2023-08-30 14:12 | Observation (INO) | payer OTHER, BC ==
[2023-08-30] MEDS ORDERED: MAG HYDROX/AL HYDROX/SIMETH 30 ML UNIT-DOSE CUP ONE (14:58)
[2023-08-30] MEDS ORDERED: ACETAMINOPHEN INJECTION 100 ML IVPB ONE (14:58)
[2023-08-30] MEDS ORDERED: FAMOTIDINE 20 MG/50 ML IVPB 20 MG/50 ML MG IVPB ONE (14:58)
[2023-08-30] MEDS ORDERED: ONDANSETRON 4 MG/2 ML VIAL ONE (15:01)
[2023-08-30] MEDS: MAG HYDROX/AL HYDROX/SIMETH -MYLANTA- ORAL SUSPENSION PO ONE (15:18)
[2023-08-30] MEDS: ONDANSETRON 4 MG/2 ML VIAL IVPUSH ONE (15:18)
[2023-08-30 15:25] LABS: BASO % 0.6 % (0-2.0); EOS % 1.1 % (0-4.5); HEMATOCRIT 38.8 % (32.4-45.2); HEMOGLOBIN 12.4 GM/dL (10.7-15.3); LYMPH % 6.4 % (8-40); MCH 26.2 pg (25.7-33.7); MCHC 31.9 g/dl (32.0-36.0); MEAN CELL VOLUME 82.1 fl (80-96); MEAN PLT VOLUME 6.9 fl (7.5-11.1); MONO % 4.4 % (3.8-10.2); NEUT % 87.5 % (42.8-82.8); PLATELET COUNT 875 10^3/uL (134-434); RBC 4.72 M/mm3 (3.60-5.2); RDW 14.2 % (11.6-15.6); WHITE BLOOD COUNT 12.2 K/mm3 (4.0-10.0)
[2023-08-30] MEDS: ACETAMINOPHEN 1000 MG/100 ML BAG IVPB ONE (15:31)
[2023-08-30 15:33] LABS: INR 1.38 (0.83-1.09); PROTHROMBIN TIME (PATIENT) 15.4 SEC (9.7-13.0)
[2023-08-30 15:35] LABS: ACTIVATED PTT 31.9 SECONDS (25.2-36.5)
[2023-08-30 15:40] LABS: EPI CELLS 4 /uL (0-25.1); HYALINE CASTS 1 /uL (0-3.1); PH,URINE 5.5 (5.0-8.0); URINE APPEARANCE CLEAR; URINE BACTERIA 5 /uL (0-1359); URINE BILIRUBIN NEGATIVE (NEGATIVE); URINE COLOR YELLOW; URINE GLUCOSE (UA) NEGATIVE (NEGATIVE); URINE KETONE 1+ (NEGATIVE); URINE LEUK ESTERASE 1+ (NEGATIVE); URINE NITRITE NEGATIVE (NEGATIVE); URINE PROTEIN NEGATIVE (NEGATIVE); URINE RBC 10 /uL (0-23.9); URINE UROBILINOGEN 0.2 mg/dL (0.2-1.0); URINE WBC 81 /uL (0-25.8)
[2023-08-30 15:41] LABS: POTASSIUM 4.5 mmol/L (3.5-5.1)
[2023-08-30 15:42] LABS: CALCIUM 9.6 mg/dL (8.5-10.1)
[2023-08-30 15:43] LABS: ALBUMIN 3.7 g/dl (3.4-5.0); BLOOD UREA NITROGEN 13.4 mg/dL (7-18); MAGNESIUM 1.9 mg/dL (1.8-2.4)
[2023-08-30 15:47] LABS: BILIRUBIN,TOTAL 0.7 mg/dL (0.2-1)
[2023-08-30 15:48] LABS: CREATININE 0.8 mg/dL (0.55-1.3); TOT PROT 7.3 g/dl (6.4-8.2)
[2023-08-30] MEDS: FAMOTIDINE 20 MG/50 ML IVPB 20 MG/50 ML MG IVPB ONE (15:56)
[2023-08-30] MEDS: LACTATED RINGERS SOLUTION 1000 ML INFUS.BAG IV ONE (16:19)
[2023-08-30] MEDS ORDERED: MAGNESIUM CITRATE 300 ML BOTTLE ONE (19:00)
[2023-08-30] MEDS ORDERED: CEFTRIAXONE 1 GM/50 ML BAG ONE (19:00)
[2023-08-30] MEDS: MAGNESIUM CITRATE 300 ML BOTTLE PO ONE (19:05)
[2023-08-30] MEDS: CEFTRIAXONE 1,000 MG in DEXTROSE 5%-WATER - 50 ML IVPB ONE (19:25)
[2023-08-31] MEDS: ACETAMINOPHEN 1000 MG/100 ML BAG IVPB ONE (05:54)
[2023-08-31 09:58] LABS: BASO % 0.8 % (0-2.0); EOS % 4.1 % (0-4.5); HEMATOCRIT 36.4 % (32.4-45.2); HEMOGLOBIN 11.7 GM/dL (10.7-15.3); LYMPH % 11.1 % (8-40); MCH 25.7 pg (25.7-33.7); MEAN CELL VOLUME 80.3 fl (80-96); MEAN PLT VOLUME 7.1 fl (7.5-11.1); MONO % 5.6 % (3.8-10.2); NEUT % 78.4 % (42.8-82.8); PLATELET COUNT 829 10^3/uL (134-434); RBC 4.53 M/mm3 (3.60-5.2); RDW 14.4 % (11.6-15.6); WHITE BLOOD COUNT 10.6 K/mm3 (4.0-10.0)
[2023-08-31 10:16] LABS: POTASSIUM 4.7 mmol/L (3.5-5.1)
[2023-08-31 10:19] LABS: CALCIUM 8.9 mg/dL (8.5-10.1)
[2023-08-31 10:20] LABS: BLOOD UREA NITROGEN 10.3 mg/dL (7-18)
[2023-08-31 10:22] LABS: CREATININE 0.6 mg/dL (0.55-1.3)
[2023-08-31] MEDS: CEFTRIAXONE 1 GM in DEXTROSE 5%-WATER - 50 ML IVPB SCH (11:43)
[2023-08-31] MEDS: APIXABAN 2.5 MG TABLET PO SCH (11:45)
[2023-08-31] MEDS ORDERED: BANATROL PLUS POWDER PACKET PO SCH (14:00)
[2023-08-31] MEDS: MIRTAZAPINE 15 MG TABLET (FP) PO SCH (23:07)
[2023-08-31] MEDS: POLYETHYLENE GLYCOL (HEALTHYLAX) 3350 17 GM PACKET PO SCH (23:07)
[2023-09-01] MEDS: ACETAMINOPHEN 325 MG TABLET (FP) PO ONE (05:18)
[2023-09-01] MEDS: ASCORBIC ACID 500 MG TABLET (FP) PO SCH (10:30)
[2023-09-01] MEDS: FOLIC ACID 1 MG TABLET (FP) PO SCH (10:32)
[2023-09-01 15:13] VITALS: RESP 18
[2023-09-02 08:33] LABS: HEMATOCRIT 36.1 % (32.4-45.2); HEMOGLOBIN 11.4 GM/dL (10.7-15.3); MCH 25.6 pg (25.7-33.7); MCHC 31.5 g/dl (32.0-36.0); MEAN CELL VOLUME 81.4 fl (80-96); MEAN PLT VOLUME 7.1 fl (7.5-11.1); PLATELET COUNT 732 10^3/uL (134-434); RBC 4.43 M/mm3 (3.60-5.2); RDW 14.3 % (11.6-15.6)
[2023-09-02 08:51] LABS: POTASSIUM 4.4 mmol/L (3.5-5.1)
[2023-09-02 08:58] LABS: BLOOD UREA NITROGEN 8.3 mg/dL (7-18); CALCIUM 8.5 mg/dL (8.5-10.1)
[2023-09-02 09:01] LABS: CREATININE 0.6 mg/dL (0.55-1.3)
[2023-09-02 09:03] LABS: BILIRUBIN,TOTAL 0.6 mg/dL (0.2-1)
[2023-09-02 09:05] LABS: ALBUMIN 2.9 g/dl (3.4-5.0)
[2023-09-02 14:18] VITALS: BP 128/71; PULSE 74; TEMP 98.3
[2023-09-02 23:46] VITALS: BMI 16.8
== END 2023-09-02 14:23 | disposition home or self-care (01) ==
LOC: JER 14:12 → JERBED 18:57 → J5S 22:48
PROVIDERS: ADMIT Internal Medicine; ATTEND Family Medicine
PROC: 3E033NZ Introduction of Analgesics, Hypnotics, Sedatives into Peripheral Vein, Percutaneous Approach (ICD-10-PCS; principal; 2023-08-30)
PROC: 3E03329 Introduction of Other Anti-infective into Peripheral Vein, Percutaneous Approach (ICD-10-PCS; 2023-08-30)
PROC: 3E033GC Introduction of Other Therapeutic Substance into Peripheral Vein, Percutaneous Approach (ICD-10-PCS; 2023-08-30)
DX: R63.4 Abnormal weight loss (principal); J44.9 Chronic obstructive pulmonary disease, unspecified; I73.9 Peripheral vascular disease, unspecified; R01.1 Cardiac murmur, unspecified; K59.00 Constipation, unspecified; K56.7 Ileus, unspecified; Z86.718 Personal history of other venous thrombosis and embolism; R91.1 Solitary pulmonary nodule; Z85.51 Personal history of malignant neoplasm of bladder; Z79.01 Long term (current) use of anticoagulants; Z86.711 Personal history of pulmonary embolism; Z88.8 Allergy status to other drugs, medicaments and biological substances; Z88.5 Allergy status to narcotic agent; Z88.1 Allergy status to other antibiotic agents
CPT/HCPCS: 0241U-QW; 36415; 74177-TC; 80048; 80053; 81003; 82378; 83605; 83690; 83735; 84484; 85025; 85027; 85610; 85730; 87045; 87046; 87086; 93005; 93010; 96365; 96366; 96367; 96375; 96376; 99285-25; G0378; J0131; Q9967

== ENCOUNTER 2023-09-20 06:38 | Day surgery (SDC) | payer BC, OTHER ==
[2023-09-18 12:27] VITALS: BMI 18.6
[2023-09-20 10:07] LABS: BASO % 0.8 % (0-2.0); EOS % 3.2 % (0-4.5); HEMATOCRIT 35.4 % (32.4-45.2); HEMOGLOBIN 11.4 GM/dL (10.7-15.3); MCHC 32.1 g/dl (32.0-36.0); MEAN CELL VOLUME 84.1 fl (80-96); MEAN PLT VOLUME 6.7 fl (7.5-11.1); MONO % 6.4 % (3.8-10.2); NEUT % 76.6 % (42.8-82.8); PLATELET COUNT 460 10^3/uL (134-434); RBC 4.21 M/mm3 (3.60-5.2); RDW 15.4 % (11.6-15.6); WHITE BLOOD COUNT 7.3 K/mm3 (4.0-10.0)
[2023-09-20 10:09] LABS: INR 1.04 (0.83-1.09); PROTHROMBIN TIME (PATIENT) 11.7 SEC (9.7-13.0)
[2023-09-20] MEDS ORDERED: MIDAZOLAM HCL 2 MG/2 ML SINGLE DOSE VIAL ONE (12:22)
[2023-09-20] MEDS ORDERED: FENTANYL CITRATE/PF 50 MCG/ML VIAL ONE (12:22)
[2023-09-20] MEDS: FENTANYL CITRATE/PF 50 MCG/ML VIAL IVPUSH ONE (13:20)
[2023-09-20] MEDS: MIDAZOLAM HCL 2 MG/2 ML SINGLE DOSE VIAL IVPUSH ONE (13:20)
[2023-09-20 15:16] VITALS: BP 121/83; PULSE 94; RESP 18; TEMP 98.6
== END 2023-09-20 15:17 | disposition home or self-care (01) ==
LOC: JRADIR 06:38
PROVIDERS: ATTEND Student in an Organized Health Care Education/Training Program
PROC: 0QB23ZX Excision of Right Pelvic Bone, Percutaneous Approach, Diagnostic (ICD-10-PCS; principal; 2023-09-20)
DX: D75.839 Thrombocytosis, unspecified (principal)
CPT/HCPCS: 20225; 36415; 77012-TC; 85025; 85610; 88300-TC